=== PATIENT | female | born 1975 | race Hispanic/Latino ===

== ENCOUNTER 2018-03-15 20:49 | Emergency (ER) | payer OTHER ==
--- NOTE | 2018-03-15 21:07 | ER ---
Nurse's Notes [facility] Name: Juliana Chicas Age: 42 yrs Sex: Female : 1975 Arrival Date: 03/15/2018 Time: 20:50 Bed 23 Private MD: Nuno Bear Diagnosis: Nasal congestion Presentation: 03/15 20:57 Presenting complaint: Patient states: nasal congestion X2 days. dry mouth X2 days. ak1 Transition of care: patient was not received from another setting of care. Onset of symptoms is unknown. Risk Assessment: Do you want to hurt yourself or someone else? Patient reports no desire to harm self or others. Initial Sepsis Screen: Does the patient meet any 2 criteria? No. Patient's initial sepsis screen is negative. Does the patient have a suspected source of infection? No. Patient's initial sepsis screen is negative. Care prior to arrival: None. 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 - Social history:: Smoking status: Patient/guardian denies using tobacco. - Ebola Screening: : No symptoms or risks identified at this time. Screenin:00 Abuse screen: Denies threats or abuse. Denies injuries from another. Nutritional aa1 screening: No deficits noted. Tuberculosis screening: No symptoms or risk factors identified. Fall Risk None identified. Assessment: 21:00 General: Appears in no apparent distress. comfortable, Behavior is calm, cooperative, aa1 appropriate for age. Pain: Denies pain. Neuro: Level of Consciousness is awake, alert, obeys commands, Oriented to person, place, time, situation, Gait is steady, Speech is normal. Respiratory: Airway is patent Respiratory effort is even, unlabored, Respiratory pattern is regular, symmetrical. GI: No signs and/or symptoms were reported involving the gastrointestinal system. : No signs and/or symptoms were reported regarding the genitourinary system. EENT: Reports nasal congestion. Derm: Skin is intact, is healthy with good turgor, Skin is pink, warm \T\ dry. Musculoskeletal: Circulation, motion, and sensation intact. Capillary refill < 3 seconds. 21:18 Reassessment: Patient appears in no apparent distress at this time. Discussed d/c \T\ f/u aa1 instructions with pt; denies questions or concerns at this time. Vital Signs: 20:58 BP 122 / 68; Pulse 86; Resp 18; Temp 98.6(TE); Pulse Ox 97% on R/A; Weight 90.72 kg ak1 (R); Height 5 ft. 1 in. (154.94 cm) (R); Pain 4/10; 20:58 Body Mass Index 37.79 (90.72 kg, 154.94 cm) ak1 ED Course: 20:50 Patient arrived in ED. am2 20:50 Nuno Bear DO is Private Physician. am2 20:58 Triage completed. ak1 20:58 Arm band placed on Patient placed in an exam room, on a stretcher, Patient notified of ak1 wait time. 21:00 Patient has correct armband on for positive identification. Bed in low position. Call aa1 light in reach. Pulse ox on. NIBP on. 21:02 Marium Serrato FNP-C is PHCP. snw 21:02 Beto Haro MD is Attending Physician. snw 21:06 Nuno Bear DO is Referral Physician. snw 21:18 Jada Angulo, RN is Primary Nurse. aa1 21:19 No provider procedures requiring assistance completed. Patient did not have IV access aa1 during this emergency room visit. Administered Medications: No medications were administered Outcome: 21:07 Discharge ordered by . snw 21:19 Discharged to home ambulatory, with family. aa1 21:19 Condition: good 21:19 Discharge instructions given to patient, Instructed on discharge instructions, follow up and referral plans. medication usage, Demonstrated understanding of instructions, follow-up care, medications, Prescriptions given X 1. 21:24 Patient left the ED. aa1 Signatures: Jada Angulo RN RN aa1 Marium Serrato FNP-C DIMENSION WAREHOUSE SUPERVISOR-Csnw Hodan Zuleta RN RN ak1 Shahla Quinonez am2
--- NOTE | 2018-03-15 21:07 | EDPHYS ---
Physician Documentation [facility] Name: Juliana Chicas Age: 42 yrs Sex: Female : 1975 Arrival Date: 03/15/2018 Time: 20:50 Bed 23 Private MD: Nuno Bear ED Physician Beto Haro HPI: 03/15 21:16 This 42 yrs old Female presents to ER via Ambulatory with complaints of Nasal snw Congestion. 21:16 The patient or guardian reports nasal congestion. Onset: The symptoms/episode snw began/occurred acutely. Severity of symptoms: At their worst the symptoms were moderate. Associated signs and symptoms: The patient has no apparent associated signs or symptoms. It is unknown whether or not the patient has had similar symptoms in the past. It is unknown whether or not the patient has recently seen a physician. pt states her last seizure was at age 19, unable to find antiepileptics or recall their name. 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 - Social history:: Smoking status: Patient/guardian denies using tobacco. - Ebola Screening: : No symptoms or risks identified at this time. ROS: 21:15 Constitutional: Negative for fever, chills, and weight loss, Eyes: Negative for injury, snw pain, redness, and discharge, Neck: Negative for injury, pain, and swelling, Cardiovascular: Negative for chest pain, palpitations, and edema, Respiratory: Negative for shortness of breath, cough, wheezing, and pleuritic chest pain, Abdomen/GI: Negative for abdominal pain, nausea, vomiting, diarrhea, and constipation, Back: Negative for injury and pain, : Negative for injury, bleeding, discharge, and swelling, MS/Extremity: Negative for injury and deformity, Skin: Negative for injury, rash, and discoloration, Neuro: Negative for headache, weakness, numbness, tingling, and seizure. 21:15 ENT: Positive for sinus congestion. Exam: 21:14 Constitutional: This is a well developed, well nourished patient who is awake, alert, snw and in no acute distress. Mental delay Head/Face: Normocephalic, atraumatic. Eyes: Pupils equal round and reactive to light, extra-ocular motions intact. Lids and lashes normal. Conjunctiva and sclera are non-icteric and not injected. Cornea within normal limits. Periorbital areas with no swelling, redness, or edema. ENT: Nares patent. No nasal discharge, no septal abnormalities noted. Tympanic membranes are normal and external auditory canals are clear. Oropharynx with no redness, swelling, or masses, exudates, or evidence of obstruction, uvula midline. Mucous membranes moist. Extremely poor dentition Neck: Trachea midline, no thyromegaly or masses palpated, and no cervical lymphadenopathy. Supple, full range of motion without nuchal rigidity, or vertebral point tenderness. No Meningismus. Chest/axilla: Normal chest wall appearance and motion. Nontender with no deformity. No lesions are appreciated. Cardiovascular: Regular rate and rhythm with a normal S1 and S2. No gallops, murmurs, or rubs. Normal PMI, no JVD. No pulse deficits. Respiratory: Lungs have equal breath sounds bilaterally, clear to auscultation and percussion. No rales, rhonchi or wheezes noted. No increased work of breathing, no retractions or nasal flaring. Abdomen/GI: Soft, non-tender, with normal bowel sounds. No distension or tympany. No guarding or rebound. No evidence of tenderness throughout. Back: No spinal tenderness. No costovertebral tenderness. Full range of motion. Skin: Warm, dry with normal turgor. Normal color with no rashes, no lesions, and no evidence of cellulitis. MS/ Extremity: Pulses equal, no cyanosis. Neurovascular intact. Full, normal range of motion. Neuro: Awake and alert, GCS 15, oriented to person, place, time, and situation. Cranial nerves II-XII grossly intact. Motor strength 5/5 in all extremities. Sensory grossly intact. Cerebellar exam normal. Normal gait. Vital Signs: 20:58 BP 122 / 68; Pulse 86; Resp 18; Temp 98.6(TE); Pulse Ox 97% on R/A; Weight 90.72 kg ak1 (R); Height 5 ft. 1 in. (154.94 cm) (R); Pain 4/10; 20:58 Body Mass Index 37.79 (90.72 kg, 154.94 cm) ak1 MDM: 21:02 Patient medically screened. snw 21:16 Data reviewed: vital signs, nurses notes. Data interpreted: Pulse oximetry: on room air snw is 97 %. Interpretation: normal. Counseling: I had a detailed discussion with the patient and/or guardian regarding: the historical points, exam findings, and any diagnostic results supporting the discharge/admit diagnosis, the need for outpatient follow up, to return to the emergency department if symptoms worsen or persist or if there are any questions or concerns that arise at home. Special discussion: Based on the history and exam findings, there is no indication for further emergent testing or inpatient evaluation. I discussed with the patient/guardian the need to see the primary care provider for further evaluation of the symptoms. Administered Medications: No medications were administered Disposition: 03/16 07:07 Co-signature as Attending Physician, Beto Haro MD I agree with the assessment and wa plan of care. Disposition: 03/15/18 21:07 Discharged to Home. Impression: Nasal congestion. - Condition is Stable. - Discharge Instructions: Hay Fever. - Prescriptions for Flonase Allergy Relief 50 mcg/actuation Nasal spray,suspension - inhale 2 spray by INTRANASAL route once daily; 1 Container. - Medication Reconciliation Form, Thank You Letter, Antibiotic Education, Prescription Opioid Use form. - Follow up: Nuno Bear DO; When: Tomorrow; Reason: Recheck today's complaints, Continuance of care, Re-evaluation by your physician. Follow up: Emergency Department; When: As needed; Reason: Worsening of condition. Signatures: Jada Angulo, RN RN aa1 Marium Serrato, DESIGN TECHNOLOGY TEACHER-C DESIGN TECHNOLOGY TEACHER-Csnw Hodan Zuleta RN RN ak1 eBto Haro MD MD wa Corrections: (The following items were deleted from the chart) 03/15 21:24 21:07 03/15/2018 21:07 Discharged to Home. Impression: Nasal congestion. Condition is aa1 Stable. Forms are Medication Reconciliation Form, Thank You Letter, Antibiotic Education, Prescription Opioid Use. Follow up: Nuno Bear; When: Tomorrow; Reason: Recheck today's complaints, Continuance of care, Re-evaluation by your physician. Follow up: Emergency Department; When: As needed; Reason: Worsening of condition. snw
== END 2018-03-15 21:24 | disposition home or self-care (01) ==
LOC: ER 20:49
DX: R09.81 Nasal congestion (principal)
CPT/HCPCS: 99283

== ENCOUNTER 2018-10-23 21:15 | Emergency (ER) | payer OTHER ==
[2018-10-23 22:27] LABS: Absolute Monocytes 0.6 K/uL (0.1-1.3); Absolute Neutrophil 5.7 K/uL (1.8-8.0); Basophils % 0.8 % (0-1.3); Eosinophils % 1.1 % (0-4.4); Hematocrit 36.7 % (36.0-45.0); Lymphocytes % 31.9 % (15.3-44.8); MPV 8.7 fL (7.6-11.3); Monocytes % 6.2 % (3.3-12.3); RBC Red Blood Cell Count 4.48 M/uL (3.86-4.86)
[2018-10-23 22:44] LABS: Potassium 3.6 mmol/L (3.5-5.1)
[2018-10-23 22:47] LABS: Urine Blood 3+ (NEG); Urine Glucose NEGATIVE (NEG); Urine Protein TRACE (NEG); Urine Specific Gravity >1.030 (1.005-1.030)
--- NOTE | 2018-10-23 22:52 | ER ---
Nurse's Notes [facility] Name: Juliana Chicas Age: 43 yrs Sex: Female : 1975 Arrival Date: 10/23/2018 Time: 21:20 Bed 15 Private MD: Nathanael Perez Diagnosis: Abnormal uterine and vaginal bleeding, unspecified Presentation: 10/23 21:27 Presenting complaint: Patient states: Vaginal bleeding that she describes as heavy aj1 since yesterday. Patient states that she has to change her pad 2 to 3 times a day. Transition of care: patient was not received from another setting of care. Onset of symptoms was October 22, 2018. Risk Assessment: Do you want to hurt yourself or someone else? Patient reports no desire to harm self or others. Initial Sepsis Screen: Does the patient meet any 2 criteria? No. Patient's initial sepsis screen is negative. Does the patient have a suspected source of infection? No. Patient's initial sepsis screen is negative. Care prior to arrival: None. 21:27 Method Of Arrival: Ambulatory aj1 21:27 Acuity: GEMMA 3 aj1 Triage Assessment: 21:29 General: Appears in no apparent distress. uncomfortable, Behavior is calm, cooperative, aj1 appropriate for age. Pain: Denies pain. Neuro: Level of Consciousness is awake, alert, obeys commands. Cardiovascular: Patient's skin is warm and dry. Respiratory: Airway is patent Respiratory effort is even, unlabored, Respiratory pattern is regular, symmetrical. : Reports vaginal bleeding that is bright red. 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 - Social history:: Smoking status: Patient/guardian denies using tobacco. - Ebola Screening: : Patient denies travel to an Ebola-affected area in the 21 days before illness onset. Screenin:16 Abuse screen: Denies threats or abuse. Denies injuries from another. Nutritional ak1 screening: No deficits noted. Tuberculosis screening: No symptoms or risk factors identified. Fall Risk None identified. Assessment: 22:16 General: Appears in no apparent distress. Behavior is calm, cooperative. Neuro: Level ak1 of Consciousness is awake, alert, obeys commands. Cardiovascular: No deficits noted. Respiratory: No deficits noted. GI: No signs and/or symptoms were reported involving the gastrointestinal system. : Reports vaginal bleeding that is bright red, moderate flow, since yesterday. pt stated she can not remember her LMP. pt stated she called her PCP office today in [place] and was told to come to ER. pt denies any pain. EENT: No signs and/or symptoms were reported regarding the EENT system. Derm: No signs and/or symptoms reported regarding the dermatologic system. Musculoskeletal: No signs and/or symptoms reported regarding the musculoskeletal system. Vital Signs: 21:29 BP 121 / 66; Pulse 68; Resp 18; Temp 98.6; Pulse Ox 100% on R/A; Height 5 ft. 1 in. aj1 (154.94 cm) (R); Pain 0/10; ED Course: 21:20 Patient arrived in ED. am2 21:20 Nuno Bear DO is Private Physician. am2 21:20 Nathanael Perez MD is Private Physician. am2 21:29 Triage completed. aj1 21:29 Arm band placed on Patient placed in an exam room. aj1 21:31 Hodan Zuleta, KRISTEN is Primary Nurse. ak1 21:44 Angel Cantrell NP is PHCP. pm1 21:44 Mehdi Torres MD is Attending Physician. pm1 22:16 Patient has correct armband on for positive identification. Bed in low position. Call ak1 light in reach. Side rails up X 1. Pulse ox on. NIBP on. 22:18 No provider procedures requiring assistance completed. Initial lab(s) drawn, by nv, ak1 sent to lab. Urine collected: clean catch specimen, cloudy. Inserted saline lock: in left hand, using aseptic technique. Blood collected. 22:58 IV discontinued, intact, bleeding controlled, No redness/swelling at site. Pressure ak1 dressing applied. Administered Medications: No medications were administered Outcome: 22:51 Discharge ordered by . pm1 22:58 Discharged to home ambulatory, with family. ak1 22:58 Condition: good 22:58 Discharge instructions given to patient, family, Instructed on discharge instructions, follow up and referral plans. Demonstrated understanding of instructions, follow-up care. 23:02 Patient left the ED. ak1 Signatures: Mariah Mello RN RN aj1 Hodan Zuleta RN RN ak1 Angel Cantrell, MANDY JAVA CORE DEVELOPER pm1 Shahla Quinonez am2
--- NOTE | 2018-10-23 22:52 | EDPHYS ---
Physician Documentation [facility] Name: Juliana Chicas Age: 43 yrs Sex: Female : 1975 Arrival Date: 10/23/2018 Time: 21:20 Bed 15 Private MD: Nathanael Perez ED Physician Mehdi Torres HPI: 10/23 22:48 This 43 yrs old Female presents to ER via Ambulatory with complaints of pm1 Vaginal Bleeding. 22:48 The patient presents with vaginal bleeding that is heavy, reports using 3 pads or pm1 tampons per day. Onset: The symptoms/episode began/occurred yesterday. Modifying factors: The symptoms are alleviated by nothing, the symptoms are aggravated by nothing. Associated signs and symptoms: Pertinent negatives: dysuria, fever, vaginal discharge, abdominal pain. Severity of symptoms: in the emergency department the symptoms have improved. The patient has experienced similar episodes in the past, a few times. The patient has not recently seen a physician. Patient with vaginal bleeding for the past two days that has required 2-3 pads daily. Patient without any pain. Patient reports irregular menstrual cycle history. 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 - Social history:: Smoking status: Patient/guardian denies using tobacco. - Ebola Screening: : Patient denies travel to an Ebola-affected area in the 21 days before illness onset. ROS: 22:48 Positive for vaginal bleeding, menstrual abnormality, Negative for urinary symptoms, pm1 vaginal discharge. 22:48 Constitutional: Negative for fever, chills, and weight loss, Eyes: Negative for injury, pain, redness, and discharge, ENT: Negative for injury, pain, and discharge, Neck: Negative for injury, pain, and swelling, Cardiovascular: Negative for chest pain, palpitations, and edema, Respiratory: Negative for shortness of breath, cough, wheezing, and pleuritic chest pain, Abdomen/GI: Negative for abdominal pain, nausea, vomiting, diarrhea, and constipation, Back: Negative for injury and pain, MS/Extremity: Negative for injury and deformity, Skin: Negative for injury, rash, and discoloration, Neuro: Negative for headache, weakness, numbness, tingling, and seizure. Exam: 22:48 Constitutional: This is a well developed, well nourished patient who is awake, alert, pm1 and in no acute distress. Head/Face: Normocephalic, atraumatic. Eyes: Pupils equal round and reactive to light, extra-ocular motions intact. Lids and lashes normal. Conjunctiva and sclera are non-icteric and not injected. Cornea within normal limits. Periorbital areas with no swelling, redness, or edema. ENT: Nares patent. No nasal discharge, no septal abnormalities noted. Tympanic membranes are normal and external auditory canals are clear. Oropharynx with no redness, swelling, or masses, exudates, or evidence of obstruction, uvula midline. Mucous membranes moist. Neck: Trachea midline, no thyromegaly or masses palpated, and no cervical lymphadenopathy. Supple, full range of motion without nuchal rigidity, or vertebral point tenderness. No Meningismus. Chest/axilla: Normal chest wall appearance and motion. Nontender with no deformity. No lesions are appreciated. Cardiovascular: Regular rate and rhythm with a normal S1 and S2. No gallops, murmurs, or rubs. Normal PMI, no JVD. No pulse deficits. Respiratory: Lungs have equal breath sounds bilaterally, clear to auscultation and percussion. No rales, rhonchi or wheezes noted. No increased work of breathing, no retractions or nasal flaring. Abdomen/GI: Soft, non-tender, with normal bowel sounds. No distension or tympany. No guarding or rebound. No evidence of tenderness throughout. Back: No spinal tenderness. No costovertebral tenderness. Full range of motion. 22:48 Skin: Warm, dry with normal turgor. Normal color with no rashes, no lesions, and no evidence of cellulitis. MS/ Extremity: Pulses equal, no cyanosis. Neurovascular intact. Full, normal range of motion. 22:48 Neuro: Orientation: is normal, Motor: is normal, moves all fours, Sensation: is normal, no obvious gross deficits, Gait: is steady, at a normal pace, without difficulty. Vital Signs: 21:29 BP 121 / 66; Pulse 68; Resp 18; Temp 98.6; Pulse Ox 100% on R/A; Height 5 ft. 1 in. aj1 (154.94 cm) (R); Pain 0/10; MDM: 21:45 Patient medically screened. belen 22:47 Patient medically screened. belen 22:50 Data reviewed: vital signs. Data interpreted: Pulse oximetry: on room air is 100 %. pm1 Interpretation: normal. Counseling: I had a detailed discussion with the patient and/or guardian regarding: the historical points, exam findings, and any diagnostic results supporting the discharge/admit diagnosis, lab results, the need for outpatient follow up, for definitive care, an OB/Gyne specialist, to return to the emergency department if symptoms worsen or persist or if there are any questions or concerns that arise at home. 10/23 21:56 Order name: CBC with Diff; Complete Time: 22:42 pm1 10/23 21:56 Order name: BMP; Complete Time: 22:47 pm1 10/23 21:56 Order name: Urine Dipstick-Ancillary (obtain specimen); Complete Time: 22:16 pm1 10/23 21:56 Order name: Urine Test (obtain specimen); Complete Time: 22:16 pm1 10/23 22:25 Order name: Urine Dipstick--Ancillary (enter results); Complete Time: 22:52 mw2 10/23 22:25 Order name: Urine --Ancillary (enter results); Complete Time: 22:52 mw2 Administered Medications: No medications were administered Disposition: 10/23/18 22:51 Discharged to Home. Impression: Abnormal uterine and vaginal bleeding, unspecified. - Condition is Stable. - Discharge Instructions: Abnormal Uterine Bleeding. - Medication Reconciliation Form, Thank You Letter form. - Follow up: Emergency Department; When: As needed; Reason: Worsening of condition. Follow up: Private Physician; When: 2 - 3 days; Reason: Recheck today's complaints, Continuance of care, Re-evaluation by your physician. - Problem is new. - Symptoms have improved. Addendum: 10/26/2018 09:02 Co-signature as Attending Physician, Mehdi Torres MD I agree with the assessment and c murdock plan of care. Signatures: Dispatcher [employer] Mariah Rebollar RN RN aj1 Mehdi Torres MD MD cha Krenek, Amber RN RN ak1 Angel Cantrell NP ROOFING MACHINE TENDER pm1 Corrections: (The following items were deleted from the chart) 10/23 23:02 22:51 10/23/2018 22:51 Discharged to Home. Impression: Abnormal uterine and vaginal ak1 bleeding, unspecified. Condition is Stable. Forms are Medication Reconciliation Form, Thank You Letter, Antibiotic Education, Prescription Opioid Use. Follow up: Emergency Department; When: As needed; Reason: Worsening of condition. Follow up: Private Physician; When: 2 - 3 days; Reason: Recheck today's complaints, Continuance of care, Re-evaluation by your physician. Problem is new. Symptoms have improved. pm1
== END 2018-10-23 23:02 | disposition home or self-care (01) ==
LOC: ER 21:15
DX: N93.9 Abnormal uterine and vaginal bleeding, unspecified (principal); G40.909 Epilepsy, unspecified, not intractable, without status epilepticus
CPT/HCPCS: 36415; 80048; 81003; 81025; 85025; 99283

== ENCOUNTER 2019-01-18 19:23 | Emergency (ER) | payer OTHER ==
--- OUTSIDE RECORDS SUMMARY | 2019-01-18 19:26 | XMS REPORT ---
:1975 [facility] Address [address] [place] [address] Care Team Providers Name Role Phone Unavailable Unavailable Unavailable Problems This patient has no known problems. Allergies, Adverse Reactions, Alerts This patient has no known allergies or adverse reactions. Medications This patient has no known medications.
--- NOTE | 2019-01-18 20:39 | EDPHYS ---
Physician Documentation [facility] Name: Juliana Chicas Age: 43 yrs Sex: Female : 1975 Arrival Date: 01/18/2019 Time: 19:25 Bed 10 Private MD: ED Physician Wilfrid Gordon HPI: 01/18 20:33 This 43 yrs old Female presents to ER via Ambulatory with complaints of Hand gs red and swollen. 20:33 The patient or guardian reports pain, swelling. The complaints affect the left hand gs diffusely, right hand diffusely. Onset: The symptoms/episode began/occurred 3 month(s) ago. Modifying factors: the symptoms are aggravated by movement. Associated signs and symptoms: Pertinent negatives: cyanosis distally, decreased sensation distally, fever, numbness distally, tingling distally. Severity of symptoms: At their worst the symptoms were moderate, in the emergency department the symptoms are unchanged. The patient has experienced similar episodes in the past, multiple times. 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 - Social history:: Smoking status: Patient/guardian denies using tobacco. - Ebola Screening: : No symptoms or risks identified at this time. ROS: 20:33 All other systems are negative. gs Exam: 20:33 Head/Face: Normocephalic, atraumatic. Eyes: Pupils equal round and reactive to light, gs extra-ocular motions intact. Lids and lashes normal. Conjunctiva and sclera are non-icteric and not injected. Cornea within normal limits. Periorbital areas with no swelling, redness, or edema. ENT: Nares patent. No nasal discharge, no septal abnormalities noted. Tympanic membranes are normal and external auditory canals are clear. Oropharynx with no redness, swelling, or masses, exudates, or evidence of obstruction, uvula midline. Mucous membranes moist. Neck: Trachea midline, no thyromegaly or masses palpated, and no cervical lymphadenopathy. Supple, full range of motion without nuchal rigidity, or vertebral point tenderness. No Meningismus. Chest/axilla: Normal chest wall appearance and motion. Nontender with no deformity. No lesions are appreciated. Cardiovascular: Regular rate and rhythm with a normal S1 and S2. No gallops, murmurs, or rubs. Normal PMI, no JVD. No pulse deficits. Respiratory: Lungs have equal breath sounds bilaterally, clear to auscultation and percussion. No rales, rhonchi or wheezes noted. No increased work of breathing, no retractions or nasal flaring. Abdomen/GI: Soft, non-tender, with normal bowel sounds. No distension or tympany. No guarding or rebound. No evidence of tenderness throughout. Back: No spinal tenderness. No costovertebral tenderness. Full range of motion. Skin: Warm, dry with normal turgor. Normal color with no rashes, no lesions, and no evidence of cellulitis. Neuro: Awake and alert, GCS 15, oriented to person, place, time, and situation. Cranial nerves II-XII grossly intact. Motor strength 5/5 in all extremities. Sensory grossly intact. Cerebellar exam normal. Normal gait. 20:33 Constitutional: The patient appears alert, awake. 20:33 Musculoskeletal/extremity: Extremities: noted in the right hand and left hand: pain, swelling, ROM: limited active range of motion due to pain, limited passive range of motion due to pain, Circulation is intact in all extremities. Vital Signs: 19:45 BP 108 / 88; Pulse 75; Resp 18; Temp 98.6(O); Pulse Ox 100% on R/A; Weight 88 kg; lp1 Height 5 ft. 1 in. (154.94 cm); Pain 10/10; 21:17 BP 125 / 71; Pulse 68; Resp 16 S; Temp 98.4(O); Pulse Ox 100% on R/A; bb 19:45 Body Mass Index 36.66 (88.00 kg, 154.94 cm) lp1 MDM: 20:07 Patient medically screened. gs 20:33 Differential diagnosis: arthritis. Data reviewed: vital signs, nurses notes. gs Counseling: I had a detailed discussion with the patient and/or guardian regarding: the historical points, exam findings, and any diagnostic results supporting the discharge/admit diagnosis, the need for outpatient follow up. Response to treatment: There is no appreciated change of the patient's symptoms at this time. Administered Medications: No medications were administered Disposition: 01/18/19 20:39 Discharged to Home. Impression: Polyarthritis, unspecified. - Condition is Stable. - Discharge Instructions: Arthritis, [id number]. - Prescriptions for Prednisone 20 mg Oral Tablet - take 1 tablet by ORAL route once daily for 5 days; 5 tablet. - Medication Reconciliation Form, Thank You Letter, Antibiotic Education, Prescription Opioid Use form. - Follow up: Private Physician; When: 2 - 3 days; Reason: Re-evaluation by your physician. Signatures: Heather Escobedo RN RN bb Maday Marin RN RN lp1 Wilfrid Gordon MD MD gs Corrections: (The following items were deleted from the chart) 21:17 20:39 01/18/2019 20:39 Discharged to Home. Impression: Polyarthritis, unspecified. bb Condition is Stable. Forms are Medication Reconciliation Form, Thank You Letter, Antibiotic Education, Prescription Opioid Use. Follow up: Private Physician; When: 2 - 3 days; Reason: Re-evaluation by your physician. gs
--- NOTE | 2019-01-18 20:39 | ER ---
Nurse's Notes [facility] Name: Juliana Chicas Age: 43 yrs Sex: Female : 1975 Arrival Date: 01/18/2019 Time: 19:25 Bed 10 Private MD: Diagnosis: Polyarthritis, unspecified Presentation: 01/18 19:43 Presenting complaint: Patient states: "I went to [place] a couple weeks ago for my lp1 hands and they did x-rays and they told me that nothing was wrong with me but they are still red, swollen and hurting, they hurt me when I'm trying to cook"; States symptoms continued now. Transition of care: patient was not received from another setting of care. Onset of symptoms was January 18, 2019. Risk Assessment: Do you want to hurt yourself or someone else? Patient reports no desire to harm self or others. Initial Sepsis Screen: Does the patient meet any 2 criteria? No. Patient's initial sepsis screen is negative. Does the patient have a suspected source of infection? No. Patient's initial sepsis screen is negative. Care prior to arrival: None. 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 - Social history:: Smoking status: Patient/guardian denies using tobacco. - Ebola Screening: : No symptoms or risks identified at this time. Screenin:46 Abuse screen: Denies threats or abuse. Denies injuries from another. Nutritional lp1 screening: No deficits noted. Tuberculosis screening: No symptoms or risk factors identified. Fall Risk None identified. Assessment: 21:14 General: Appears in no apparent distress. Behavior is calm, cooperative. bb 21:15 Pain: Complains of pain in bilateral hands. Neuro: Level of Consciousness is awake, bb alert, obeys commands, Oriented to person, place, time, situation. Cardiovascular: No deficits noted. Respiratory: Respiratory effort is even, unlabored. GI: No signs and/or symptoms were reported involving the gastrointestinal system. Derm: Skin is pink, warm \\T\\ dry. Musculoskeletal: Circulation, motion, and sensation intact. Reports pain in left hand and right hand. 21:18 Reassessment: Patient is alert, oriented x 3, equal unlabored respirations, skin bb warm/dry/pink. pt and parent verbalized understanding of and agrees to plan of care discharge instructions given pt ambulated with steady gait to exit accompanied by family. Vital Signs: 19:45 BP 108 / 88; Pulse 75; Resp 18; Temp 98.6(O); Pulse Ox 100% on R/A; Weight 88 kg; lp1 Height 5 ft. 1 in. (154.94 cm); Pain 10/10; 21:17 BP 125 / 71; Pulse 68; Resp 16 S; Temp 98.4(O); Pulse Ox 100% on R/A; bb 19:45 Body Mass Index 36.66 (88.00 kg, 154.94 cm) lp1 ED Course: 19:25 Patient arrived in ED. es 19:45 Triage completed. lp1 19:45 Arm band placed on left wrist. lp1 19:47 Wilfrid Gordon MD is Attending Physician. gs 21:16 Patient has correct armband on for positive identification. bb 21:16 No provider procedures requiring assistance completed. Patient did not have IV access bb during this emergency room visit. Administered Medications: No medications were administered Outcome: 20:39 Discharge ordered by MD. gs 21:16 Discharged to home ambulatory, with family. bb 21:16 Condition: stable 21:16 Discharge instructions given to patient, family, Instructed on discharge instructions, follow up and referral plans. medication usage, Demonstrated understanding of instructions, follow-up care, medications, Prescriptions given X 1. 21:17 Patient left the ED. bb Signatures: Jessenia Reaves Brenda, RN RN bb Maday Marin RN RN 1 Wilfrid Gordon MD MD
== END 2019-01-18 21:17 | disposition home or self-care (01) ==
LOC: ER 19:23
DX: M13.0 Polyarthritis, unspecified (principal); M79.641 Pain in right hand; G40.909 Epilepsy, unspecified, not intractable, without status epilepticus

== ENCOUNTER 2019-03-10 14:14 | Emergency (ER) | payer OTHER ==
--- OUTSIDE RECORDS SUMMARY | 2019-03-10 14:22 | XMS REPORT ---
:1975 Author Organization [facility] Address [address] [place] [address] [address]. [address] [place] [address] Care Team Providers Name Role Phone Unavailable Unavailable Unavailable Problems This patient has no known problems. Allergies, Adverse Reactions, Alerts This patient has no known allergies or adverse reactions. Medications This patient has no known medications.
--- NOTE | 2019-03-10 15:28 | EDPHYS ---
Physician Documentation [facility] Name: Juliana Chicas Age: 43 yrs Sex: Female : 1975 Arrival Date: 03/10/2019 Time: 14:15 Bed 12 Private MD: ED Physician Fercho Patten HPI: 03/10 15:05 This 43 yrs old Female presents to ER via Ambulatory with complaints of Hand jr8 Pain. 15:05 The patient or guardian reports pain. The complaints affect the left hand diffusely, jr8 right hand diffusely. Context: The problem was sustained at home, resulted from an unknown cause. Onset: The symptoms/episode began/occurred acutely, today. Modifying factors: The symptoms are alleviated by nothing, the symptoms are aggravated by movement. Associated signs and symptoms: The patient has no apparent associated signs or symptoms. Severity of symptoms: At their worst the symptoms were mild, in the emergency department the symptoms are unchanged. The patient has experienced similar episodes in the past, several times. The patient has not recently seen a physician. Intermittent hand pain bilaterally for several months. Stated that while doing dishes today the pain started again but was worse today . 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 - Social history:: Smoking status: Patient/guardian denies using tobacco. - Ebola Screening: : Patient denies exposure to infectious person Patient denies travel to an Ebola-affected area in the 21 days before illness onset. ROS: 15:05 Eyes: Negative for injury, pain, redness, and discharge, ENT: Negative for injury, jr8 pain, and discharge, Neck: Negative for injury, pain, and swelling, Cardiovascular: Negative for chest pain, palpitations, and edema, Respiratory: Negative for shortness of breath, cough, wheezing, and pleuritic chest pain, Abdomen/GI: Negative for abdominal pain, nausea, vomiting, diarrhea, and constipation, Back: Negative for injury and pain, Skin: Negative for injury, rash, and discoloration, Neuro: Negative for headache, weakness, numbness, tingling, and seizure. 15:05 MS/extremity: Positive for pain, of the right hand and left hand. Exam: 15:05 Eyes: Pupils equal round and reactive to light, extra-ocular motions intact. Lids and jr8 lashes normal. Conjunctiva and sclera are non-icteric and not injected. Cornea within normal limits. Periorbital areas with no swelling, redness, or edema. ENT: Nares patent. No nasal discharge, no septal abnormalities noted. Tympanic membranes are normal and external auditory canals are clear. Oropharynx with no redness, swelling, or masses, exudates, or evidence of obstruction, uvula midline. Mucous membranes moist. Neck: Trachea midline, no thyromegaly or masses palpated, and no cervical lymphadenopathy. Supple, full range of motion without nuchal rigidity, or vertebral point tenderness. No Meningismus. Cardiovascular: Regular rate and rhythm with a normal S1 and S2. No gallops, murmurs, or rubs. Normal PMI, no JVD. No pulse deficits. Respiratory: Lungs have equal breath sounds bilaterally, clear to auscultation and percussion. No rales, rhonchi or wheezes noted. No increased work of breathing, no retractions or nasal flaring. Abdomen/GI: Soft, non-tender, with normal bowel sounds. No distension or tympany. No guarding or rebound. No evidence of tenderness throughout. Back: No spinal tenderness. No costovertebral tenderness. Full range of motion. Skin: Warm, dry with normal turgor. Normal color with no rashes, no lesions, and no evidence of cellulitis. MS/ Extremity: Pulses equal, no cyanosis. Neurovascular intact. Full, normal range of motion. Neuro: Awake and alert, GCS 15, oriented to person, place, time, and situation. Cranial nerves II-XII grossly intact. Motor strength 5/5 in all extremities. Sensory grossly intact. Cerebellar exam normal. Normal gait. Vital Signs: 14:21 BP 112 / 74; Pulse 75; Resp 15; Temp 97.9; Pulse Ox 99% on R/A; Weight 88.9 kg; Height ss 5 ft. 1 in. (154.94 cm); Pain 10/10; 14:21 Body Mass Index 37.03 (88.90 kg, 154.94 cm) MDM: 14:56 Patient medically screened. jr8 15:24 Data reviewed: vital signs, nurses notes, and as a result, I will discharge patient. jr8 Data interpreted: Pulse oximetry: on room air is 99 %. Interpretation: normal. Counseling: I had a detailed discussion with the patient and/or guardian regarding: the historical points, exam findings, and any diagnostic results supporting the discharge/admit diagnosis, the need for outpatient follow up, a orthopedic surgeon, to return to the emergency department if symptoms worsen or persist or if there are any questions or concerns that arise at home. ED course: No s/s to suggest carpal tunnel, Raynaud's phenomenon, or RA. Mild OA plausible. Rest of extremity exam along with neck and neurologic exam unremarkable. Recommended f/u with orthopedics and will start on light NSAID based product. Family and patient good with this . Administered Medications: No medications were administered Disposition: 16:16 Co-signature as Attending Physician, Fercho Patten MD I agree with the assessment and kdr plan of care. Disposition: 03/10/19 15:27 Discharged to Home. Impression: Pain in left hand, Pain in right hand. - Condition is Stable. - Discharge Instructions: Arthritis, Musculoskeletal Pain. - Prescriptions for Diclofenac Sodium 75 mg Oral Tablet, Delayed Release (E.C.) - take 1 tablet by ORAL route 2 times per day As needed; 30 tablet. - Medication Reconciliation Form, Thank You Letter, Antibiotic Education, Prescription Opioid Use form. - Follow up: Yoel Bello MD; When: 7 - 10 days; Reason: Recheck today's complaints, Continuance of care, Re-evaluation by your physician. - Problem is new. - Symptoms are unchanged. Signatures: Fercho Patten MD MD [facility] Juana Soliman RN RN Emil Douglas PA PA jr8 Corrections: (The following items were deleted from the chart) 15:56 15:27 03/10/2019 15:27 Discharged to Home. Impression: Pain in left hand; Pain in right ss hand. Condition is Stable. Forms are Medication Reconciliation Form, Thank You Letter, Antibiotic Education, Prescription Opioid Use. Follow up: Yoel Bello; When: 7 - 10 days; Reason: Recheck today's complaints, Continuance of care, Re-evaluation by your physician. Problem is new. Symptoms are unchanged. jr8
--- NOTE | 2019-03-10 15:28 | ER ---
Nurse's Notes [facility] Name: Juliana Chicas Age: 43 yrs Sex: Female : 1975 Arrival Date: 03/10/2019 Time: 14:15 Bed 12 Private MD: Diagnosis: Pain in left hand;Pain in right hand Presentation: 03/10 14:19 Presenting complaint: Patient states: Bilateral hand pain that began after cleaning ss today. Pt reports that she has been seen by her PCP in the past for the same thing and has been told that there is nothing wrong with her hands. Denies injury. Transition of care: patient was not received from another setting of care. Onset of symptoms is unknown. Risk Assessment: Do you want to hurt yourself or someone else? Patient reports no desire to harm self or others. Initial Sepsis Screen: Does the patient meet any 2 criteria? No. Patient's initial sepsis screen is negative. Does the patient have a suspected source of infection? No. Patient's initial sepsis screen is negative. Care prior to arrival: None. 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 - Social history:: Smoking status: Patient/guardian denies using tobacco. - Ebola Screening: : Patient denies exposure to infectious person Patient denies travel to an Ebola-affected area in the 21 days before illness onset. Screenin:56 Abuse screen: Denies threats or abuse. Denies injuries from another. Nutritional ss screening: No deficits noted. Tuberculosis screening: Never had TB. Fall Risk None identified. Assessment: 14:21 General: Appears in no apparent distress. comfortable, Behavior is calm, cooperative, ss Denies fever, feeling ill, fatigue, chills. Pain: Complains of pain in right hand and left hand Pain currently is 10 out of 10 on a pain scale. Quality of pain is described as aching, tender, Is continuous. Neuro: Level of Consciousness is awake, alert, obeys commands, Oriented to person, place, time, situation. Cardiovascular: Capillary refill < 3 seconds is brisk in bilateral fingers. Respiratory: Airway is patent Respiratory effort is even, unlabored, Respiratory pattern is regular, symmetrical. EENT: Oral mucosa is moist. Throat is clear. Derm: Skin is intact, is healthy with good turgor, Skin is dry, Skin is pink, warm \T\ dry. normal. Musculoskeletal: Circulation, motion, and sensation intact. Range of motion: intact in all extremities, Swelling absent. Vital Signs: 14:21 BP 112 / 74; Pulse 75; Resp 15; Temp 97.9; Pulse Ox 99% on R/A; Weight 88.9 kg; Height ss 5 ft. 1 in. (154.94 cm); Pain 10/10; 14:21 Body Mass Index 37.03 (88.90 kg, 154.94 cm) ED Course: 14:15 Patient arrived in ED. as 14:21 Triage completed. ss 14:21 Arm band placed on left wrist. Patient placed in an exam room. ss 14:21 Patient has correct armband on for positive identification. Bed in low position. Call ss light in reach. 14:56 Emil Douglas PA is [facility]. jr8 14:56 Fercho Patten MD is Attending Physician. jr8 15:27 Yoel Bello MD is Referral Physician. jr8 15:55 Juana Soliman RN is Primary Nurse. 15:55 No provider procedures requiring assistance completed. Patient did not have IV access ss during this emergency room visit. Administered Medications: No medications were administered Outcome: 15:27 Discharge ordered by . jr8 15:55 Discharged to home ambulatory, with family. ss 15:55 Condition: good 15:55 Discharge instructions given to patient, family, Instructed on discharge instructions, follow up and referral plans. medication usage, Demonstrated understanding of instructions, follow-up care, medications, Prescriptions given X 1. 15:56 Patient left the ED. Signatures: Kelsy Walker Shelby, KRISTEN RN Emil Douglas PA PA jr
== END 2019-03-10 15:56 | disposition home or self-care (01) ==
LOC: ER 14:14
DX: M79.642 Pain in left hand (principal); M79.641 Pain in right hand
CPT/HCPCS: 99282

== ENCOUNTER 2020-01-19 22:48 | Emergency (ER) | payer OTHER ==
--- OUTSIDE RECORDS SUMMARY | 2020-01-19 22:51 | XMS REPORT ---
:1975 Author Organization [facility] t Address [address] [place] [address] [address]. [address] [place] [address] Care Team Providers Name Role Phone Unavailable Unavailable Unavailable Problems This patient has no known problems. Allergies, Adverse Reactions, Alerts This patient has no known allergies or adverse reactions. Medications This patient has no known medications.
[2020-01-19 23:36] LABS: Absolute Lymphocytes (CBC) 2.4 K/uL (0.7-4.9); Basophils % 1.1 % (0-1.3); Hematocrit 34.3 % (36.0-45.0); Lymphocytes % 27.6 % (15.3-44.8); MPV 8.6 fL (7.6-11.3); RBC Red Blood Cell Count 4.18 M/uL (3.86-4.86)
[2020-01-19 23:43] LABS: ALT/SGPT 14 U/L (12-78); AST/SGOT 9 U/L (15-37); Alkaline Phosphatase 80 U/L (45-117); BUN Blood Urea Nitrogen 17 mg/dL (7-18); Bicarbonate 26 mmol/L (21-32); Glucose Level 115 mg/dL (74-106); Potassium 3.3 mmol/L (3.5-5.1); Protein, Total 6.6 g/dL (6.4-8.2); Sodium Level 137 mmol/L (136-145)
[2020-01-19 23:47] LABS: Bilirubin Total < 0.1 mg/dL (0.2-1.0)
[2020-01-20 01:14] LABS: Specific Gravity 1.015 (1.005-1.030)
--- NOTE | 2020-01-20 01:34 | EDPHYS ---
Physician Documentation [facility] Name: Juliana Chicas Age: 44 yrs Sex: Female : 1975 Arrival Date: 01/19/2020 Time: 22:50 Bed 8 Private MD: ED Physician Rachid Dooley HPI: 01/19 04:20 This 44 yrs old Female presents to ER via EMS with complaints of Abdominal tw4 Cramping, Vaginal Bleeding. 04:20 The patient presents with vaginal bleeding that is moderate, reports using 5 pads or tw4 tampons per day. Onset: The symptoms/episode began/occurred today. Modifying factors: The symptoms are alleviated by nothing, the symptoms are aggravated by nothing. Associated signs and symptoms: Pertinent positives: PELVIC PAIN MILD. Severity of symptoms: At their worst the symptoms were mild, in the emergency department the symptoms are unchanged. The patient has not experienced similar symptoms in the past. TREATMENT SPECIALIST: 01/18 22:55 LMP 01/18/2020 jb4 Historical: - Allergies: 22:55 No Known Allergies; jb4 - Home Meds: 22:55 Trileptal 600 mg Oral tab 1 tab 2 times per day [Active]; jb4 - PMHx: 22:55 Asthma; Seizures; jb4 - PSHx: 22:55 None; jb4 - Immunization history:: Adult Immunizations unknown. - Social history:: Smoking status: Patient denies any tobacco usage or history of. Patient/guardian denies using alcohol, street drugs. ROS: 01/19 04:20 Positive for vaginal bleeding. tw4 Constitutional: Negative for fever, chills, and weight loss, Eyes: Negative for injury, pain, redness, and discharge, Cardiovascular: Negative for chest pain, palpitations, and edema, Respiratory: Negative for shortness of breath, cough, wheezing, and pleuritic chest pain, Abdomen/GI: Negative for abdominal pain, nausea, vomiting, diarrhea, and constipation, Back: Negative for injury and pain, MS/Extremity: Negative for injury and deformity, Skin: Negative for injury, rash, and discoloration, Neuro: Negative for headache, weakness, numbness, tingling, and seizure. Exam: 04:20 Constitutional: This is a well developed, well nourished patient who is awake, alert, tw4 and in no acute distress. Head/Face: Normocephalic, atraumatic. Chest/axilla: Normal chest wall appearance and motion. Nontender with no deformity. No lesions are appreciated. Cardiovascular: Regular rate and rhythm with a normal S1 and S2. No gallops, murmurs, or rubs. Normal PMI, no JVD. No pulse deficits. Respiratory: Lungs have equal breath sounds bilaterally, clear to auscultation and percussion. No rales, rhonchi or wheezes noted. No increased work of breathing, no retractions or nasal flaring. Abdomen/GI: Soft, non-tender, with normal bowel sounds. No distension or tympany. No guarding or rebound. No evidence of tenderness throughout. 04:20 : Pelvic Exam: the exam is deferred. Vital Signs: 01/18 22:52 BP 119 / 73; Pulse 78; Resp 16; Temp 98.5; Pulse Ox 100% on R/A; Weight 81.65 kg (R); 4 Height 5 ft. 1 in. (154.94 cm) (R); Pain 10/10; 23:47 BP 117 / 75; Pulse 71; Resp 18; Pulse Ox 100% ; ea 01/19 01:00 BP 126 / 76; Pulse 64; Resp 16; Pulse Ox 100% on R/A; jb4 02:00 BP 118 / 72; Pulse 58; Resp 16; Pulse Ox 100% on R/A; 4 03:00 BP 113 / 81; Pulse 66; Resp 16; Pulse Ox 100% on R/A; 4 04:00 BP 115 / 72; Pulse 62; Resp 16; Pulse Ox 100% on R/A; jb4 05:00 BP 108 / 66; Pulse 57; Resp 16; Pulse Ox 100% on R/A; jb4 06:00 BP 114 / 74; Pulse 56; Resp 16; Pulse Ox 100% on R/A; [facility] 01/18 22:52 Body Mass Index 34.01 (81.65 kg, 154.94 cm) [facility] MDM: 01/18 23:00 Patient medically screened. tw4 01/19 04:25 Differential diagnosis: dysfunctional uterine bleeding, dysmenorrhea, menometrorrhagia, tw4 menorrhea, hemorrhage. Data reviewed: vital signs, nurses notes. Data interpreted: Pulse oximetry: Interpretation: normal. Counseling: I had a detailed discussion with the patient and/or guardian regarding: the historical points, exam findings, and any diagnostic results supporting the discharge/admit diagnosis. Special discussion: I discussed with the patient/guardian in detail that at this point there is no indication for admission to the hospital. It is understood, however, that if the symptoms persist or worsen the patient needs to return immediately for re-evaluation. 01/18 23:03 Order name: CBC with Diff; Complete Time: 00:09 01/19 00:09 Interpretation: Normal except: HGB 11.1; MCH 26.7; HCT 34.3. 01/18 23:03 Order name: CMP; Complete Time: 00:09 01/19 00:09 Interpretation: Normal except: K 3.3; GLUC 115; GFR 72. 01/18 22:54 Order name: Urine Dipstick-Ancillary (obtain specimen); Complete Time: 23:36 01/18 22:54 Order name: Urine Test (obtain specimen); Complete Time: 23:36 01/19 01:07 Order name: Test, Urine; Complete Time: 01:33 EDMS Administered Medications: No medications were administered Disposition: 01/20/20 01:33 Discharged to Home. Impression: Dysmenorrhea, unspecified. - Condition is Stable. - Discharge Instructions: Dysmenorrhea, Dysmenorrhea, [id number]. - Prescriptions for Ibuprofen 800 mg Oral Tablet - take 1 tablet by ORAL route every 8 hours As needed take with food; 30 tablet. - Medication Reconciliation Form, Thank You Letter, Antibiotic Education, Prescription Opioid Use form. - Follow up: Private Physician; When: Upon discharge from the Emergency Department; Reason: Recheck today's complaints, Continuance of care, Re-evaluation by your physician. - Problem is new. - Symptoms have improved. Signatures: Dispatcher [employer] Ti Prasad RN RN em Bryson, James, RN RN jb4 Rachid Dooley MD MD tw4 Corrections: (The following items were deleted from the chart) 08:09 01:33 01/20/2020 01:33 Discharged to Home. Impression: Dysmenorrhea, unspecified. em Condition is Stable. Forms are Medication Reconciliation Form, Thank You Letter, Antibiotic Education, Prescription Opioid Use. Follow up: Private Physician; When: Upon discharge from the Emergency Department; Reason: Recheck today's complaints, Continuance of care, Re-evaluation by your physician. Problem is new. Symptoms have improved. tw4
--- NOTE | 2020-01-20 01:34 | ER ---
Nurse's Notes [facility] Name: Juliana Chicas Age: 44 yrs Sex: Female : 1975 Arrival Date: 01/19/2020 Time: 22:50 Bed 8 Private MD: Diagnosis: Dysmenorrhea, unspecified Presentation: 01/18 22:52 Chief complaint: EMS states: PT reports having lower abdominal pain and vaginal jb4 bleeding that happens once a month every month. Coronavirus screen: Proceed with normal triage. Ebola Screen: No symptoms or risks identified at this time. Initial Sepsis Screen: Does the patient meet any 2 criteria? No. Patient's initial sepsis screen is negative. Does the patient have a suspected source of infection? No. Patient's initial sepsis screen is negative. Risk Assessment: Do you want to hurt yourself or someone else? Patient reports no desire to harm self or others. Onset of symptoms was January 19, 2020. Care prior to arrival: IV initiated. 20 GA, in the left hand, Glucose check: 127. Transition of care: patient was not received from another setting of care. 22:52 Method Of Arrival: EMS: [facility] jb4 22:52 Acuity: GEMMA 3 jb4 OUTDOOR GUIDE: 22:55 LMP 01/18/2020 jb4 Historical: - Allergies: 22:55 No Known Allergies; jb4 - Home Meds: 22:55 Trileptal 600 mg Oral tab 1 tab 2 times per day [Active]; jb4 - PMHx: 22:55 Asthma; Seizures; jb4 - PSHx: 22:55 None; jb4 - Immunization history:: Adult Immunizations unknown. - Social history:: Smoking status: Patient denies any tobacco usage or history of. Patient/guardian denies using alcohol, street drugs. Screenin:00 Abuse screen: Denies threats or abuse. Nutritional screening: No deficits noted. jb4 Tuberculosis screening: No symptoms or risk factors identified. Fall Risk None identified. Assessment: 23:00 General: Appears in no apparent distress. uncomfortable, Behavior is calm, cooperative, jb4 appropriate for age. Pain: Complains of pain in right lower quadrant and left lower quadrant Pain does not radiate. Pain currently is 10 out of 10 on a pain scale. Quality of pain is described as crampy, Pain began 1 day ago. Is continuous. Neuro: Level of Consciousness is awake, alert, obeys commands, Oriented to person, place, time, situation. Cardiovascular: Patient's skin is warm and dry. Respiratory: Airway is patent Respiratory effort is even, unlabored, Respiratory pattern is regular, symmetrical. GI: Abdomen is non-distended, obese, Bowel sounds present X 4 quads. Abd is soft and non tender X 4 quads. : No signs and/or symptoms were reported regarding the genitourinary system. EENT: No signs and/or symptoms were reported regarding the EENT system. Derm: Skin is intact, Skin is pink, warm \\T\\ dry. Musculoskeletal: Circulation, motion, and sensation intact. Range of motion: intact in all extremities. 01/19 00:00 Reassessment: Patient appears in no apparent distress at this time. Patient and/or jb4 family updated on plan of care and expected duration. Pain level reassessed. Patient is alert, oriented x 3, equal unlabored respirations, skin warm/dry/pink. 01:00 Reassessment: Patient appears in no apparent distress at this time. Patient and/or jb4 family updated on plan of care and expected duration. Pain level reassessed. Patient is alert, oriented x 3, equal unlabored respirations, skin warm/dry/pink. 02:16 Reassessment: Patient states she does not have a ride home; given phone insurance risk analyst to lp1 contact. 03:00 Reassessment: Patient appears in no apparent distress at this time. Patient and/or jb4 family updated on plan of care and expected duration. Pain level reassessed. Patient is alert, oriented x 3, equal unlabored respirations, skin warm/dry/pink. PT reports not being able to get a ride till morning. states " I can't call my mom. I don't think she will come. I know she wont come get me because she has a hard time seeing at night.". 04:00 Reassessment: Patient appears in no apparent distress at this time. Patient and/or jb4 family updated on plan of care and expected duration. Pain level reassessed. Patient is alert, oriented x 3, equal unlabored respirations, skin warm/dry/pink. 05:00 Reassessment: Patient appears in no apparent distress at this time. Patient and/or jb4 family updated on plan of care and expected duration. Pain level reassessed. Patient is alert, oriented x 3, equal unlabored respirations, skin warm/dry/pink. 06:42 Reassessment: Patient appears in no apparent distress at this time. Patient and/or jb4 family updated on plan of care and expected duration. Pain level reassessed. Patient is alert, oriented x 3, equal unlabored respirations, skin warm/dry/pink. PT is refusing to give the number to her mother. States " I do not want to go home, I want to walk home to [place]. I don't want to see my mom right now. I want to walk home so I will not be home on time.". Denies having any where else to go. 07:25 Reassessment: pt unable to get a ride, [facility] has no funds to make a phone call, [facility] architect notified and pt will take a taxi home. Vital Signs: 01/18 22:52 BP 119 / 73; Pulse 78; Resp 16; Temp 98.5; Pulse Ox 100% on R/A; Weight 81.65 kg (R); jb4 Height 5 ft. 1 in. (154.94 cm) (R); Pain 10/10; 23:47 BP 117 / 75; Pulse 71; Resp 18; Pulse Ox 100% ; ea 01/19 01:00 BP 126 / 76; Pulse 64; Resp 16; Pulse Ox 100% on R/A; jb4 02:00 BP 118 / 72; Pulse 58; Resp 16; Pulse Ox 100% on R/A; jb4 03:00 BP 113 / 81; Pulse 66; Resp 16; Pulse Ox 100% on R/A; jb4 04:00 BP 115 / 72; Pulse 62; Resp 16; Pulse Ox 100% on R/A; jb4 05:00 BP 108 / 66; Pulse 57; Resp 16; Pulse Ox 100% on R/A; jb4 06:00 BP 114 / 74; Pulse 56; Resp 16; Pulse Ox 100% on R/A; jb4 01/18 22:52 Body Mass Index 34.01 (81.65 kg, 154.94 cm) [facility] ED Course: 01/18 22:50 Patient arrived in ED. lp1 22:52 Jeff Genao, RN is Primary Nurse. jb4 22:53 Rachid Dooley MD is Attending Physician. tw4 22:54 Triage completed. jb4 22:55 Arm band placed on right wrist. EKG completed in triage. Results shown to MD. jb4 23:00 Patient has correct armband on for positive identification. Bed in low position. Call jb4 light in reach. Side rails up X 1. Pulse ox on. NIBP on. 01/19 06:46 No provider procedures requiring assistance completed. IV discontinued, intact, jb4 bleeding controlled, No redness/swelling at site. Pressure dressing applied. Administered Medications: No medications were administered Outcome: 01:33 Discharge ordered by . tw4 08:09 Discharged to home ambulatory. em 08:09 Condition: good 08:09 Discharge instructions given to patient, Instructed on discharge instructions, follow up and referral plans. medication usage, Demonstrated understanding of instructions, follow-up care, medications, Prescriptions given X 1. 08:09 Patient left the ED. em Signatures: Ti Gonzales, RN RN em Maday Marin, RN RN lp1 Jeff Genao, RN RN jb4 Erin Yañez, RN Rachid Young ea, MD MD tw4
[2020-01-20 08:33] VITALS: TEMP 98.5; O2SAT 100
[2020-01-20 08:47] VITALS: BP 114/74
== END 2020-01-20 08:09 | disposition home or self-care (01) ==
LOC: ER 22:48
DX: N94.6 Dysmenorrhea, unspecified (principal); G40.909 Epilepsy, unspecified, not intractable, without status epilepticus
CPT/HCPCS: 36415; 80053; 81025; 85025; 99283

== ENCOUNTER 2020-05-28 15:01 | Emergency (ER) | payer SELFPAY ==
--- OUTSIDE RECORDS SUMMARY | 2020-05-28 15:03 | XMS REPORT | Summary of Care ---
:1975 Author Organization [facility] Address [address] [place] [address] Care Team Providers Name Role Phone Katty Haile MD Primary Care Provider Reason for Visit Reason Comments Results Encounter Details Date Type Department Care Team Description 04/15/2020 Telephone ACCESS CENTER Katherine Pickett FNP Results [address] [address] [facility] [phone] [place] [address] 15-1500 Allergies No Known Allergiesdocumented as of this encounter (statuses as of 04/15/2020) Medications Medication Sig Dispensed Refills Start Date End Date Status OXcarbazepine Take 600 mg by 0 A ctive (TRILEPTAL) 600 mg mouth 2 (two) tablet times daily. documented as of this encounter (statuses as of 04/15/2020) Active Problems Problem Noted Date Bilateral hand pain 01/17/2019 Prediabetes 12/29/2018 Iron deficiency 07/16/2017 Beta thalassemia trait 07/16/2017 Dental decay 07/02/2017 Anemia 02/20/2017 History of hypertension 03/20/2016 Mentally challenged 02/28/2016 documented as of this encounter (statuses as of 04/15/2020) Resolved Problems Problem Noted Date Resolved Date Normal delivery 03/25/2016 07/02/2017 AMA (advanced maternal age) primigravida 35+ 03/25/2016 07/02/2017 38 weeks gestation of 03/20/2016 07/02/20 17 Maternal anemia in , antepartum, third trimester 07/02/2017 Supervision of high-risk of elderly primigravida, 02/28/2016 07/02/2017 third trimester High-risk , third trimester [O09.93] 02/28/2016 07/02/2017 Insufficient care, third trimester [O09.33] 016 07/02/2017 documented as of this encounter (statuses as of 04/15/2020) Immunizations Name Administration Dates Next Due Influenza Virus Vaccine Quad IM Multi-dose 6+ MO 07/02/2017 documented as of this encounter Social History Tobacco Use Types Packs/Day Years Used Date Never Smoker Smokeless Tobacco: Never Used Alcohol Use Drinks/Week oz/Week Comments No 0 Standard drinks or equivalent 0.0 Sex Assigned at Date Recorded Not on file Job Start Date Occupation Industry Not on file Not on file Not on file Travel History Travel Start Travel End No recent travel history available. documented as of this encounter Last Filed Vital Signs Not on filedocumented in this encounter Plan of Treatment Health Maintenance Due Date Last Done Comments PNEUMOCOCCAL 0-64 YEARS COMBINED SERIES (1 of 3 - 1983 PCV13) DTaP,Tdap,and Td Vaccines (1 - Tdap) 1988 Depression Screening 1989 Breast Cancer Screening (MAMMOGRAM) 2017 PAP SMEAR 02/27/2019 02/28/2016 INFLUENZA VACCINE (#1) 2020 07/02/2017 documented as of this encounter Results Not on filedocumented in this encounter Additional Health Concerns Infection Onset Date Last Indicated Resolved Time COVID-19 Rule Out 04/14/2020 04/14/2020 04/15/2020 2: 40 AM CDT COVID-19 Confirmed 04/14/2020 04/14/2020 documented as of this encounter Insurance Payer Benefit Plan / Subscriber ID Effective Phone Address T ype Group Dates [facility] [id number] 2018-Prese Medic are Adv HEALTHCARE - HEALTHCARE DUAL nt P PO MANAGED COMPLETE MEDICARE WELLCARE MAURA WELLSIOBHAN LORENZO [id number] 2020-Pres Medicare Adv PLUS PLUS ent HMO CLASSIC/VALUE documented as of this encounter
--- OUTSIDE RECORDS SUMMARY | 2020-05-28 15:03 | XMS REPORT | Summary of Care ---
:1975 Author Organization [facility] Address [address] [place] [id number] Care Team Providers Name Role Phone Katty Haile MD Primary Care Provider Reason for Visit Reason Comments Exposure LAB Encounter Details Date Type Department Care Team Description 04/14/2020 Laboratory Only [facility] Family Marilyn Pickett FNP [address] [place] [address] [address] Suspected Covid-19 Medicine - [facility], Adc Fam Pob I Virus Infection [address] [place] [address] (Primary D x) [place] [address] Allergies No Known Allergiesdocumented as of this encounter (statuses as of 04/14/2020) Medications Medication Sig Dispensed Refills Start Date End Date Status OXcarbazepine Take 600 mg by 0 A ctive (TRILEPTAL) 600 mg mouth 2 (two) tablet times daily. documented as of this encounter (statuses as of 04/14/2020) Active Problems Problem Noted Date Bilateral hand pain 01/17/2019 Prediabetes 12/29/2018 Iron deficiency 07/16/2017 Beta thalassemia trait 07/16/2017 Dental decay 07/02/2017 Anemia 02/20/2017 History of hypertension 03/20/2016 Mentally challenged 02/28/2016 documented as of this encounter (statuses as of 04/14/2020) Resolved Problems Problem Noted Date Resolved Date [...] as of this encounter (statuses as of 04/14/2020) Immunizations Name Administration Dates Next Due Influenza [...] filedocumented in this encounter Plan of Treatment Name Type Priority Associated Diagnoses Order S chedule COVID-19 (PCR MOLECULAR LAB Routine Suspected Covid-1 9 Virus Expected: 04/14/2020, TESTING) Infection Expires: 2020 Health Maintenance Due Date Last Done Comments PNEUMOCOCCAL 0-64 YEARS COMBINED SERIES (1 of 3 - 1983 PCV13) DTaP,Tdap,and Td Vaccines (1 - Tdap) 1988 Depression Screening 1989 Breast Cancer Screening (MAMMOGRAM) 2017 PAP SMEAR 02/27/2019 02/28/2016 INFLUENZA VACCINE (#1) 2020 07/02/2017 documented as of this encounter Results Not on filedocumented in this encounter Visit Diagnoses Diagnosis Suspected Covid-19 Virus Infection - Sully matthew documented in this encounter Additional Health Concerns Infection Onset Date Last Indicated Resolved Time COVID-19 Rule Out 04/14/2020 04/14/2020 documented as of this encounter
--- OUTSIDE RECORDS SUMMARY | 2020-05-28 15:03 | XMS REPORT | Continuity of Care Document ---
:1975 Author Organization [facility] t Address [address] [place] [address] [address] [place] [address] Care Team Providers Name Role Phone Piyush SCALLOP RAKER Attending Clinician Lab, Fam Pob I Attending Clinician Unavailable Doctor Unassigned, Name Attending Clinician Unavailable Problems This patient has no known problems. Allergies, Adverse Reactions, Alerts This patient has no known allergies or adverse reactions. Medications This patient has no known medications. Procedures This patient has no known procedures. Encounters Start End Encounter Admission Attending Care Care Encounter Source Date/Time Date/Time Type Type Clinicians Facility Department ID 2020-04-15 2020-04-15 Telephone JOE Pickett [id number] 00:00:00 00:00:[id number] [facility] [id number] 2020-04-14 2020-04-14 Laboratory Lab, [facility] [id number] 09:52:50 10:12:50 Only Fam Pob I Health [id number] [place] [id number] Professio [phone] nal [address] 2020-04-14 2020-04-14 Letter Doctor JOE [id number] 00:00:00 00:00:00 (Out) UnassJE escalante [id number] [facility] [id number] Results This patient has no known results.
--- OUTSIDE RECORDS SUMMARY | 2020-05-28 15:03 | XMS REPORT | Summary of Care ---
:1975 Author Organization [facility] Address [address] [place] [address] Care Team Providers Name Role Phone Katty Haile MD Primary Care Provider Encounter Details Date Type Department Care Team Description 04/14/2020 Letter (Out) [facility] appbackr Message s Doctor Unassigned, No 301 [facility] [place] [address] [address] [facility] [phone] [place] [address] Allergies No Known Allergiesdocumented as of this [...] filedocumented in this encounter Plan of Treatment Date Type Specialty Care Team Description 04/14/2020 Laboratory Only Family Medicine Katherine Pickett, HYDROELECTRIC MECHANIC [address] [address] Suspected Covid-19 Lab, Adc Fam Pob I Virus Infection (Primary Dx) Health Maintenance Due Date Last Done Comments PNEUMOCOCCAL 0-64 YEARS COMBINED SERIES (1 of 3 - 1983 PCV13) DTaP,Tdap,and Td Vaccines (1 - Tdap) 1988 Depression Screening 1989 Breast Cancer Screening (MAMMOGRAM) 2017 PAP SMEAR 02/27/2019 02/28/2016 INFLUENZA VACCINE (#1) 2020 07/02/2017 documented as of this encounter Results Not on filedocumented in this encounter Insurance Payer Benefit Plan / Subscriber ID Effective Phone Address T ype Group Dates [employer] [id number] 2018-Prese Medic are Adv HEALTHCARE - HEALTHCARE DUAL nt P PO MANAGED COMPLETE MEDICARE WELL[employer]ARE MAURA LORENZO [id number] 2020-Pres Medicare Adv PLUS PLUS ent HMO CLASSIC/VALUE documented as of this encounter
[2020-05-28 15:52] LABS: Absolute Lymphocytes (CBC) 2.1 K/uL (0.7-4.9); Hematocrit 37.7 % (36.0-45.0); Lymphocytes % 22.1 % (15.3-44.8); MPV 8.8 fL (7.6-11.3); RBC Red Blood Cell Count 4.64 M/uL (3.86-4.86)
[2020-05-28 15:53] LABS: Protime INR 1.01
[2020-05-28 16:08] LABS: ALT/SGPT 17 U/L (12-78); AST/SGOT 10 U/L (15-37); Albumin 3.6 g/dL (3.4-5.0); Alkaline Phosphatase 99 U/L (45-117); BUN Blood Urea Nitrogen 13 mg/dL (7-18); Bicarbonate 26 mmol/L (21-32); Bilirubin Direct < 0.1 mg/dL (0-0.2); Bilirubin Total 0.2 mg/dL (0.2-1.0); Glucose Level 97 mg/dL (74-106); Magnesium 2.5 mg/dL (1.8-2.4); NT PRO-BNP 140 pg/mL (<125); Potassium 3.9 mmol/L (3.5-5.1); Protein, Total 7.7 g/dL (6.4-8.2); Sodium Level 140 mmol/L (136-145); Troponin (Emerg Dept Use Only) < 0.02 ng/mL (0.0-0.045)
--- NOTE | 2020-05-28 16:33 | RAD REPORT ---
EXAM DESCRIPTION: Marky Single View05/28/2020 4:17 pm CLINICAL HISTORY: Chest pain COMPARISON: 2015 FINDINGS: The lungs appear clear of acute infiltrate. The heart is normal size IMPRESSION: No acute abnormalities displayed
[2020-05-28 16:38] LABS: Urine Blood NEGATIVE (NEG); Urine Glucose NEGATIVE (NEG); Urine Protein NEGATIVE (NEG)
--- NOTE | 2020-05-28 20:28 | ER ---
Nurse's Notes [facility] Name: Juliana Chicas Age: 44 yrs Sex: Female : 1975 Arrival Date: 05/28/2020 Time: 15:09 Bed 2 Private MD: Diagnosis: Chest pain, unspecified Presentation: 05/28 15:09 Chief complaint: EMS states: Toned out for CP, started today when guardian left, pt is jl7 developmentally delayed with approximate developmental age of about 14. No interventions in route, pt appeared comfortable in route. Coronavirus screen: Client denies travel out of the [place] in the last 14 days. At this time, the client does not indicate any symptoms associated with coronavirus-19. Ebola Screen: No symptoms or risks identified at this time. Initial Sepsis Screen: Does the patient meet any 2 criteria? No. Patient's initial sepsis screen is negative. Does the patient have a suspected source of infection? No. Patient's initial sepsis screen is negative. Risk Assessment: Do you want to hurt yourself or someone else? Patient reports no desire to harm self or others. Onset of symptoms was May 28, 2020. Care prior to arrival: None. Transition of care: patient was not received from another setting of care. 15:09 Method Of Arrival: EMS: [facility] 7 15:09 Acuity: GEMMA 3 jl7 Triage Assessment: 15:12 General: Appears in no apparent distress. uncomfortable, Behavior is calm, cooperative. jl7 Pain: Complains of pain in mid-sternal area Pain does not radiate. Pain currently is 10 out of 10 on a pain scale. Quality of pain is described as "Oh, I don't know." Pain began suddenly, Is continuous. Neuro: Level of Consciousness is awake, alert, obeys commands, Oriented to person, place, time, situation. Cardiovascular: Heart tones present Patient's skin is warm and dry. Rhythm is sinus rhythm. Respiratory: Airway is patent Respiratory effort is even, unlabored, Respiratory pattern is regular, symmetrical. Derm: Skin is pink, warm \\T\\ dry. TRIBAL DELEGATE: 15:12 LMP N/A - Irregular menses jl7 Historical: - Allergies: 15:12 No Known Allergies; jl7 - Home Meds: 15:12 Trileptal 600 mg Oral tab 1 tab 2 times per day [Active]; jl7 - PMHx: 15:12 Asthma; Seizures; jl7 - PSHx: 15:12 None; jl7 - Immunization history:: Adult Immunizations unknown. - Social history:: Smoking status: Patient denies any tobacco usage or history of. Screenin:14 Abuse screen: Denies threats or abuse. Denies injuries from another. Nutritional jl7 screening: No deficits noted. Tuberculosis screening: No symptoms or risk factors identified. Fall Risk IV access (20 points). Total Berrios Fall Scale indicates No Risk (0-24 pts). Assessment: 15:14 General: See triage assessment. Pain: Complains of pain in mid-sternal area Pain does jl7 not radiate. Pain currently is 10 out of 10 on a pain scale. Quality of pain is described as "Oh, I don't know." Pain began suddenly, Is continuous. 16:16 Reassessment: Patient appears in no apparent distress at this time. No changes from ca1 previously documented assessment. Patient and/or family updated on plan of care and expected duration. Pain level reassessed. 17:15 Reassessment: Patient appears in no apparent distress at this time. No changes from ca1 previously documented assessment. Patient and/or family updated on plan of care and expected duration. Pain level reassessed. 17:39 Reassessment: for repeat Trop at 2000 per provider. ca1 18:43 Reassessment: Patient appears in no apparent distress at this time. No changes from jl7 previously documented assessment. Patient and/or family updated on plan of care and expected duration. Pain level reassessed. Patient is alert, oriented x 3, equal unlabored respirations, skin warm/dry/pink. 19:54 Reassessment: Patient appears in no apparent distress at this time. No changes from ca1 previously documented assessment. Patient and/or family updated on plan of care and expected duration. Pain level reassessed. Patient is alert, oriented x 3, equal unlabored respirations, skin warm/dry/pink. 20:35 Reassessment: Patient appears in no apparent distress at this time. Patient is alert, ca1 oriented x 3, equal unlabored respirations, skin warm/dry/pink. Spoke with pt's mother on the phone, provided discharge instructions and to come pick pt up from the ER. Vital Signs: 15:09 BP 117 / 61; Pulse 70; Resp 12 S; Temp 98(O); Pulse Ox 98% on R/A; Weight 74.39 kg (R); jl7 Pain 10/10; 16:16 BP 116 / 83; Pulse 58; Resp 15 S; Pulse Ox 100% on R/A; ca1 17:15 BP 110 / 85; Pulse 61; Resp 16 S; Pulse Ox 100% on R/A; ca1 18:43 BP 117 / 91; Pulse 52; Resp 16; Pulse Ox 99% ; jl7 19:55 BP 113 / 82; Pulse 58; Resp 16 S; Pulse Ox 99% on R/A; ca1 20:35 BP 111 / 81; Pulse 61; Resp 15 S; Pulse Ox 99% on R/A; ca1 ED Course: 15:09 Patient arrived in ED. jl7 15:12 Triage completed. jl7 15:12 Arm band placed on right wrist. jl7 15:14 EKG completed in triage. Results shown to MD. jl7 15:14 Patient has correct armband on for positive identification. Placed in gown. Bed in low jl7 position. Call light in reach. Side rails up X2. telemetry monitor on. Pulse ox on. NIBP on. 15:14 Patient maintains SpO2 saturation greater than 95% on room air. jl7 15:15 Angel Cantrell NP is PHCP. pm1 15:15 Dale Mcleod MD is Attending Physician. pm1 15:23 Kelsey Lehman RN is Primary Nurse. ca1 15:32 Kelsey Lehman RN is Primary Nurse. ca1 15:40 Missed attempt(s): 22 gauge in right forearm. antecubital area. mh5 15:42 Missed attempt(s): 22 gauge in left antecubital area. Bleeding controlled, band aid ca1 applied, catheter tip intact. 15:45 Initial lab(s) drawn, by me, sent to lab. Inserted saline lock: 22 gauge in left wrist, ca1 using aseptic technique. Blood collected. 16:17 XRAY Chest (1 view) In Process Unspecified. EDMS 19:52 Troponin (emerg Dept Use Only) Sent. ds4 19:57 No provider procedures requiring assistance completed. ca1 20:36 IV discontinued, intact, bleeding controlled, No redness/swelling at site. Pressure ca1 dressing applied. Administered Medications: No medications were administered Outcome: 20:27 Discharge ordered by MD. pm1 20:36 Discharged to home ambulatory. ca1 20:36 Condition: stable 20:36 Discharge instructions given to patient, Instructed on discharge instructions, follow up and referral plans. Demonstrated understanding of instructions, follow-up care. 20:36 Patient left the ED. ca1 Signatures: Dispatcher [employer] EDMS Ross Mensah ds4 Angel Cantrell NP MANAGER SPECIALTY pm1 Gabriela Walker 5 Ana Perez RN RN jl7 Kelsey Lehman RN RN ca1 Corrections: (The following items were deleted from the chart) 20:36 20:35 BP 111 / 81; Pulse 51bpm; Resp 15bpm; Spontaneous; Pulse Ox 99% RA; ca1 ca1
--- NOTE | 2020-05-28 20:28 | EDPHYS ---
Physician Documentation [facility] Name: Juliana Chicas Age: 44 yrs Sex: Female : 1975 Arrival Date: 05/28/2020 Time: 15:09 Bed 2 Private MD: ED Physician Dale Mcleod HPI: 05/28 15:26 This 44 yrs old Female presents to ER via EMS with complaints of Chest Pain > pm1 32 y/o. 15:26 The patient or guardian reports chest pain that is located primarily in the mid-sternal pm1 area. Onset: today, When her mother left her at home to go to [employer] with her siblings. The pain does not radiate. Associated signs and symptoms: Pertinent negatives: abdominal pain, cough, headache, nausea, palpitations, shortness of breath, vomiting. Duration: The patient or guardian reports a single episode, that is still ongoing. The patient has not experienced similar symptoms in the past. 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 - Social history:: Smoking status: Patient denies any tobacco usage or history of. ROS: 15:26 Constitutional: Negative for fever, chills, and weight loss, Eyes: Negative for injury, pm1 pain, redness, and discharge, ENT: Negative for injury, pain, and discharge, Neck: Negative for injury, pain, and swelling. 15:26 Respiratory: Negative for shortness of breath, cough, wheezing, and pleuritic chest pain, Abdomen/GI: Negative for abdominal pain, nausea, vomiting, diarrhea, and constipation, Back: Negative for injury and pain, MS/Extremity: Negative for injury and deformity, Skin: Negative for injury, rash, and discoloration, Neuro: Negative for headache, weakness, numbness, tingling, and seizure. 15:26 Cardiovascular: Positive for chest pain, Negative for edema, palpitations. Exam: 15:26 Constitutional: This is a well developed, well nourished patient who is awake, alert, pm1 and in no acute distress. Head/Face: Normocephalic, atraumatic. Neck: Trachea midline, no thyromegaly or masses palpated, and no cervical lymphadenopathy. Supple, full range of motion without nuchal rigidity, or vertebral point tenderness. No Meningismus. 15:26 Back: No spinal tenderness. No costovertebral tenderness. Full range of motion. Skin: Warm, dry with normal turgor. Normal color with no rashes, no lesions, and no evidence of cellulitis. MS/ Extremity: Pulses equal, no cyanosis. Neurovascular intact. Full, normal range of motion. 15:26 Chest/axilla: Inspection: normal, Palpation: tenderness, that is mild, of the mid-sternal area, that totally reproduces the patient's complaints. 15:26 Cardiovascular: Exam negative for acute changes, Rate: normal, Rhythm: regular, Pulses: no pulse deficits are appreciated, Heart sounds: normal, Edema: is not appreciated. 15:26 Respiratory: Exam negative for acute changes, respiratory distress, shortness of breath. 15:26 Abdomen/GI: Exam negative for acute changes, Inspection: abdomen appears normal, Palpation: abdomen is soft and non-tender, in all quadrants. 15:26 Neuro: Exam negative for acute changes, Orientation: is normal, Mentation: is normal, Motor: moves all fours. Vital Signs: 15:09 BP 117 / 61; Pulse 70; Resp 12 S; Temp 98(O); Pulse Ox 98% on R/A; Weight 74.39 kg (R); jl7 Pain 10/10; 16:16 BP 116 / 83; Pulse 58; Resp 15 S; Pulse Ox 100% on R/A; ca1 17:15 BP 110 / 85; Pulse 61; Resp 16 S; Pulse Ox 100% on R/A; ca1 18:43 BP 117 / 91; Pulse 52; Resp 16; Pulse Ox 99% ; jl7 19:55 BP 113 / 82; Pulse 58; Resp 16 S; Pulse Ox 99% on R/A; ca1 20:35 BP 111 / 81; Pulse 61; Resp 15 S; Pulse Ox 99% on R/A; ca1 MDM: 15:22 Patient medically screened. pm1 20:27 Data reviewed: vital signs. Data interpreted: Pulse oximetry: on room air is 99 %. pm1 Interpretation: normal. Counseling: I had a detailed discussion with the patient and/or guardian regarding: the historical points, exam findings, and any diagnostic results supporting the discharge/admit diagnosis, lab results, radiology results, the need for outpatient follow up, to return to the emergency department if symptoms worsen or persist or if there are any questions or concerns that arise at home. 05/28 15:24 Order name: Basic Metabolic Panel; Complete Time: 16:47 pm1 05/28 15:24 Order name: CBC with Diff; Complete Time: 16:47 pm1 05/28 15:24 Order name: LFT's; Complete Time: 16:47 pm1 05/28 15:24 Order name: Magnesium; Complete Time: 16:47 pm1 05/28 15:24 Order name: NT PRO-BNP; Complete Time: 16:47 pm1 05/28 15:24 Order name: PT-INR; Complete Time: 16:47 pm1 05/28 15:24 Order name: Troponin (emerg Dept Use Only); Complete Time: 16:47 pm1 05/28 15:24 Order name: XRAY Chest (1 view); Complete Time: 16:47 pm1 05/28 15:24 Order name: EKG; Complete Time: 15:25 pm1 05/28 15:24 Order name: Cardiac monitoring; Complete Time: 15:23 pm1 05/28 15:24 Order name: EKG - Nurse/Tech; Complete Time: 15:23 pm1 05/28 16:36 Order name: Urine Dipstick--Ancillary (enter results); Complete Time: 16:47 eb 05/28 16:36 Order name: Urine --Ancillary (enter results); Complete Time: 16:47 eb 05/28 17:16 Order name: Troponin (emerg Dept Use Only); Complete Time: 20:17 ca1 05/28 15:24 Order name: IV Saline Lock; Complete Time: 15:44 pm1 05/28 15:24 Order name: Labs collected and sent; Complete Time: 15:44 pm1 05/28 15:24 Order name: O2 Per Protocol; Complete Time: 15:23 pm1 05/28 15:24 Order name: O2 Sat Monitoring; Complete Time: 15:23 pm1 05/28 15:24 Order name: Urine Dipstick-Ancillary (obtain specimen); Complete Time: 16:29 pm1 05/28 15:24 Order name: Urine Test (obtain specimen); Complete Time: 16:29 pm1 Administered Medications: No medications were administered Disposition: 05/29 07:37 Co-signature as Attending Physician, Dale Mcleod MD. sd2 Disposition: 05/28/20 20:27 Discharged to Home. Impression: Chest pain, unspecified. - Condition is Stable. - Discharge Instructions: Nonspecific Chest Pain. - Medication Reconciliation Form, Thank You Letter, Antibiotic Education, Prescription Opioid Use form. - Follow up: Emergency Department; When: As needed; Reason: Worsening of condition. Follow up: Private Physician; When: 2 - 3 days; Reason: Recheck today's complaints, Continuance of care, Re-evaluation by your physician. - Problem is new. - Symptoms have improved. Signatures: Dispatcher [employer] EDMS Angel Cantrell NP LINES TENDER pm1 Ana Perez RN RN jl7 Dale Mcleod MD MD sd2 Kelsey Lehman RN RN ca1 Corrections: (The following items were deleted from the chart) 05/28 20:36 20:27 05/28/2020 20:27 Discharged to Home. Impression: Chest pain, unspecified. ca1 Condition is Stable. Forms are Medication Reconciliation Form, Thank You Letter, Antibiotic Education, Prescription Opioid Use. Follow up: Emergency Department; When: As needed; Reason: Worsening of condition. Follow up: Private Physician; When: 2 - 3 days; Reason: Recheck today's complaints, Continuance of care, Re-evaluation by your physician. Problem is new. Symptoms have improved. pm1
[2020-05-29 16:41] VITALS: TEMP 98
[2020-05-29 16:44] VITALS: O2SAT 99
[2020-05-29 16:47] VITALS: BP 111/81
--- NOTE | 2020-05-30 20:04 | EKG ---
Test Date: 2020-05-28 Test Time: 15:04:33 Lead Massage Therapist: GRETA MEASUREMENT RESULTS: Intervals: Rate: 65 CT: 148 QRSD: 86 QT: 392 QTc: 407 [place]: P: 42 CT: 148 QRS: 30 T: 35 INTERPRETIVE STATEMENTS: Normal sinus rhythm with sinus arrhythmia Normal ECG Compared to ECG 07/25/2016 16:54:27 No significant changes Electronically Signed On 05-30-20 19:59:43 CDT by Duane Burton
== END 2020-05-28 20:36 | disposition home or self-care (01) ==
LOC: ER 15:01
DX: R07.9 Chest pain, unspecified (principal); G40.909 Epilepsy, unspecified, not intractable, without status epilepticus
CPT/HCPCS: 36415; 71045; 80048; 80076; 81003; 81025; 83735; 83880; 84484; 85025; 85610; 93005; 99285

== ENCOUNTER 2021-05-09 22:21 | Emergency (ER) | payer SELFPAY ==
--- OUTSIDE RECORDS SUMMARY | 2021-05-09 22:24 | XMS REPORT | Continuity of Care Document ---
:1975 Author Organization [facility] t Address [address] [place] [address] Care Team Providers Name Role Phone Doctor Unassigned, Name Attending Clinician Unavailable Piyush VENEGAS Attending Clinician Lab, Fam Pob I Attending Clinician Unavailable Problems This patient has no known problems. Allergies, Adverse Reactions, Alerts This patient has no known allergies or adverse reactions. Medications This patient has no known medications. Procedures This patient has no known procedures. Encounters Start End Encounter Admission Attending Care Care Encounter Source Date/Time Date/Time Type Type Clinicians Facility Department ID 2021-03-14 2021-03-14 Orders Doctor JOE [id number] 00:00:00 00:00:00 Only UnassignedJE [id number] [facility] [id number] 2020-04-15 2020-04-15 Telephone JOE Pickett [id number] 00:00:00 00:00:00 [facility] [id number] [facility] [id number] 2020-04-14 2020-04-14 Laboratory Lab, [facility] [id number] 09:52:50 10:12:50 Only Fam Pob I Health [id number] [place] [id number] Professmary alice [id number] [address]al [address] 2020-04-14 2020-04-14 Letter Doctor JOE [id number] 00:00:00 00:00:00 (Out) Unassigned, JE [id number] [place] [id number] Results This patient has no known results.
[2021-05-10 00:16] LABS: Urine Blood 2+ (Negative); Urine Glucose Negative (Negative); Urine Protein Negative (Negative); Urine Specific Gravity >=1.030 (1.005-1.030)
[2021-05-10 00:36] LABS: Absolute Lymphocytes (CBC) 2.3 K/uL (0.7-4.9); Basophils % 0.7 % (0-1.3); Hematocrit 34.6 % (36.0-45.0); Lymphocytes % 22.9 % (15.3-44.8); MPV 8.1 fL (7.6-11.3); RBC Red Blood Cell Count 4.14 M/uL (3.86-4.86)
[2021-05-10 00:42] LABS: Barbiturates NEGATIVE (NEGATIVE); Benzodiazepines NEGATIVE (NEGATIVE); Cocaine NEGATIVE (NEGATIVE); METHAMPHETAM NEGATIVE (NEGATIVE); Methadone NEGATIVE (NEGATIVE); Opiates NEGATIVE (NEGATIVE); Phencyclidine NEGATIVE (NEGATIVE); THC Cannibis NEGATIVE (NEGATIVE)
[2021-05-10 00:59] LABS: Protime INR 1.03
[2021-05-10 01:10] LABS: ALT/SGPT 24 U/L (12-78); AST/SGOT 11 U/L (15-37); Albumin 3.6 g/dL (3.4-5.0); Alkaline Phosphatase 91 U/L (45-117); BUN Blood Urea Nitrogen 13 mg/dL (7-18); Bicarbonate 24 mmol/L (21-32); Bilirubin Direct < 0.1 mg/dL (0-0.2); Bilirubin Total 0.3 mg/dL (0.2-1.0); Glucose Level 102 mg/dL (74-106); Potassium 3.5 mmol/L (3.5-5.1); Sodium Level 139 mmol/L (136-145)
[2021-05-10 01:35] LABS: Urine Specific Gravity/Preg >1.030 (1.005-1.030)
--- NOTE | 2021-05-10 04:11 | ER ---
Nurse's Notes [facility] Name: Juliana Chicas Age: 45 yrs Sex: Female : 1975 Arrival Date: 05/09/2021 Time: 22:41 Bed DIS11 Private MD: Diagnosis: Suicidal ideations Presentation: 05/09 23:12 Chief complaint: EMS states: a family member said something that upset her and she iw started that she wanted to kill herself , hx of mental illness , pt states that her cousin makes her wanna kill herself bc she wants to get away from her mother and her cousin. Coronavirus screen: At this time, the client does not indicate any symptoms associated with coronavirus-19. Ebola Screen: Patient negative for fever greater than or equal to 101.5 degrees Fahrenheit, and additional compatible Ebola Virus Disease symptoms Patient denies exposure to infectious person. Patient denies travel to an Ebola-affected area in the 21 days before illness onset. No symptoms or risks identified at this time. Initial Sepsis Screen: Does the patient meet any 2 criteria? No. Patient's initial sepsis screen is negative. Does the patient have a suspected source of infection? No. Patient's initial sepsis screen is negative. Risk Assessment: Do you want to hurt yourself or someone else? Patient reports no desire to harm self or others. Onset of symptoms was May 09, 2021. 23:12 Method Of Arrival: Ambulatory iw 23:12 Acuity: GEMMA 2 iw Historical: - Allergies: 23:14 No Known Allergies; iw - Home Meds: 23:14 None [Active]; iw - PMHx: 23:14 Asthma; Seizures; iw - Immunization history:: Client reports receiving the 1st dose of the Covid vaccine. - Social history:: Smoking status: Patient denies any tobacco usage or history of. Screenin/19 01:00 Abuse screen: Denies threats or abuse. Nutritional screening: No deficits noted. jb4 Tuberculosis screening: No symptoms or risk factors identified. Fall Risk None identified. Assessment: 00:55 General: Appears in no apparent distress. comfortable, Behavior is calm, cooperative, jb4 appropriate for age. Pain: Denies pain. Neuro: Level of Consciousness is awake, alert, obeys commands, Oriented to person, place, time, situation. Cardiovascular: Patient's skin is warm and dry. Respiratory: Airway is patent Respiratory effort is even, unlabored, Respiratory pattern is regular, symmetrical. GI: No signs and/or symptoms were reported involving the gastrointestinal system. : No signs and/or symptoms were reported regarding the genitourinary system. EENT: No signs and/or symptoms were reported regarding the EENT system. Derm: Skin is intact, Skin is pink, warm \\T\\ dry. Musculoskeletal: Circulation, motion, and sensation intact. Range of motion: intact in all extremities. 02:00 Reassessment: Patient appears in no apparent distress at this time. Patient and/or jb4 family updated on plan of care and expected duration. Pain level reassessed. Patient is alert, oriented x 3, equal unlabored respirations, skin warm/dry/pink. 03:02 Reassessment: Patient appears in no apparent distress at this time. Patient and/or jb4 family updated on plan of care and expected duration. Pain level reassessed. Patient is alert, oriented x 3, equal unlabored respirations, skin warm/dry/pink. 04:00 Reassessment: Patient appears in no apparent distress at this time. Patient and/or jb4 family updated on plan of care and expected duration. Pain level reassessed. Patient is alert, oriented x 3, equal unlabored respirations, skin warm/dry/pink. 05:00 Reassessment: Patient appears in no apparent distress at this time. Patient and/or jb4 family updated on plan of care and expected duration. Pain level reassessed. Patient is alert, oriented x 3, equal unlabored respirations, skin warm/dry/pink. 06:00 Reassessment: Patient appears in no apparent distress at this time. Patient and/or jb4 family updated on plan of care and expected duration. Pain level reassessed. Patient is alert, oriented x 3, equal unlabored respirations, skin warm/dry/pink. 08:41 Reassessment: Patient appears in no apparent distress at this time. Patient and/or ss family updated on plan of care and expected duration. Pain level reassessed. Denies SI/HI. Brother here to pick patient up. Psych: 01:33 [place] Suicide Severity Screening: In the past month, have you wished you were jb4 or wished you could go to sleep and not wake up? Patient responds "yes." "In the past month, have you actually had any thoughts of killing yourself?" Patient responds "yes." "In your lifetime, have you ever done anything, started to do anything, or prepared to do anything to end your life?" Patient responds "yes." Patient reports suicidal intent within 3 past months. Subjective: Patient's mood is sad, hopeless. Objective: Patient is cooperative, Speech is normal, Affect is flat. Interventions: Removed personal items and placed in bag. Patient placed in hospital gown. Searched person for dangerous items. Safety Checks: Personal items have been removed. Door is open. No visitors are present at this time. Pt denies substance abuse. Commitment: Patient will be a voluntary commitment. Vital Signs: 05/09 23:12 BP 111 / 64; Pulse 89; Resp 16; Temp 97.6; Pulse Ox 97% on R/A; Weight 81.65 kg; Height iw 5 ft. 2 in. (157.48 cm); 05/10 02:00 BP 93 / 68; Pulse 60; Resp 16; Pulse Ox 100% on R/A; jb4 05/09 23:12 Body Mass Index 32.92 (81.65 kg, 157.48 cm) iw ED Course: 05/09 22:41 Patient arrived in ED. cf2 23:14 Triage completed. iw 23:15 Arm band placed on. iw 05/10 00:10 Initial lab(s) drawn, by me, sent to lab. Inserted saline lock: 22 gauge in right em wrist, using aseptic technique. Blood collected. 00:41 Ron Olsen is Attending Physician. sp3 01:32 Jeff Genao, RN is Primary Nurse. jb4 01:43 Contacted [facility] to have pt screened per Dr. Olsen's request. tt3 02:54 [place] with [facility] called and asked for the pt demographics and clinicals to be tt3 emailed to him. Email was provided. Asked for 5-10 minutes and then to call via iPad to speak with the pt. 03:09 Connected [place] with [facility] with the pt via iPad for screening. tt3 08:40 No provider procedures requiring assistance completed. IV discontinued, intact, ss bleeding controlled, No redness/swelling at site. Pressure dressing applied. Administered Medications: No medications were administered Outcome: 04:11 Discharge ordered by MD. sp3 08:40 Discharged to home ambulatory. 08:40 Condition: good 08:40 Discharge instructions given to patient, Instructed on discharge instructions, follow up and referral plans. Demonstrated understanding of instructions, follow-up care. 08:41 Patient left the ED. Signatures: Ti Gonzales, RN RN em Kayley Lin RN RN Juana Soliman RN RN ss Jeff Genao RN RN jb4 Maria L Pierce cf2 Marcelo Chun tt3 Ron Olsen sp3 Corrections: (The following items were deleted from the chart) 05/09 23:14 23:14 Allergies: Aspirin; [facility] 05/10 07:24 04:00 Abuse screen: Denies threats or abuse. [place] [id number] 04:00 Nutritional screening: No deficits noted. 4 4 04:00 Tuberculosis screening: No symptoms or risk factors identified. [place] [id number] 04:00 Fall Risk None identified. [facility] jb4
--- NOTE | 2021-05-10 04:11 | EDPHYS ---
Physician Documentation [facility] Name: Juliana Chicas Age: 45 yrs Sex: Female : 1975 Arrival Date: 05/09/2021 Time: 22:41 Bed DIS11 Private MD: ED Physician Ron Olsen HPI: 05/10 01:57 This 45 yrs old Female presents to ER via Ambulatory with complaints of sp3 Suicidal Ideation. 01:57 5-year-old female with a history of seizures and asthma currently on Trileptal presents sp3 with suicidal ideation x1 day. Patient got into a verbal altercation regarding work scope of cleaning some furniture and was threatened and therefore patient now states she wants to "kill herself with a knife by stabbing herself". Patient denies homicidal ideation, hallucinations, anxiety, or any other psychiatric symptoms. On ROS patient denies headache, neck pain, fever, URI symptoms, shortness of breath, chest pain, abdominal pain, nausea, vomiting, diarrhea, syncope, neuro symptoms, rash, known sick contacts, travel history, or any other ROS at this time. Other systems are negative.. Historical: - Allergies: 05/09 23:14 No Known Allergies; iw - Home Meds: 23:14 None [Active]; iw - PMHx: 23:14 Asthma; Seizures; iw - Immunization history:: Client reports receiving the 1st dose of the Covid vaccine. - Social history:: Smoking status: Patient denies any tobacco usage or history of. ROS: 05/10 02:00 Constitutional: Negative for fever, chills, and weight loss, Eyes: Negative for injury, sp3 pain, redness, and discharge, ENT: Negative for injury, pain, and discharge, Neck: Negative for injury, pain, and swelling, Cardiovascular: Negative for chest pain, palpitations, and edema, Respiratory: Negative for shortness of breath, cough, wheezing, and pleuritic chest pain, Abdomen/GI: Negative for abdominal pain, nausea, vomiting, diarrhea, and constipation, Back: Negative for injury and pain, MS/Extremity: Negative for injury and deformity, Skin: Negative for injury, rash, and discoloration, Neuro: Negative for headache, weakness, numbness, tingling, and seizure, Allergy/Immunology: Negative for hives, rash, and allergies. Psych: Positive for suicidal ideation. Exam: 02:00 Constitutional: This is a well developed, well nourished patient who is awake, alert, sp3 and in no acute distress. Head/Face: Normocephalic, atraumatic. Eyes: Pupils equal round and reactive to light, extra-ocular motions intact. Lids and lashes normal. Conjunctiva and sclera are non-icteric and not injected. Cornea within normal limits. Periorbital areas with no swelling, redness, or edema. ENT: Nares patent. No nasal discharge, no septal abnormalities noted. External auditory canals are clear. Oropharynx with no redness, swelling, or masses, exudates, or evidence of obstruction, uvula midline. Mucous membranes moist. Neck: Trachea midline, no thyromegaly or masses palpated, and no cervical lymphadenopathy. Supple, full range of motion without nuchal rigidity, or vertebral point tenderness. No Meningismus. Chest/axilla: Normal chest wall appearance and motion. Nontender with no deformity. No lesions are appreciated. Cardiovascular: Regular rate and rhythm with a normal S1 and S2. No gallops, murmurs, or rubs. Normal PMI, no JVD. No pulse deficits. Respiratory: Lungs have equal breath sounds bilaterally, clear to auscultation and percussion. No rales, rhonchi or wheezes noted. No increased work of breathing, no retractions or nasal flaring. Abdomen/GI: Soft, non-tender, with normal bowel sounds. No distension or tympany. No guarding or rebound. No evidence of tenderness throughout. Back: No spinal tenderness. No costovertebral tenderness. Full range of motion. Skin: Warm, dry with normal turgor. Normal color with no rashes, no lesions, and no evidence of cellulitis. MS/ Extremity: Pulses equal, no cyanosis. Neurovascular intact. Full, normal range of motion. Neuro: Awake and alert, GCS 15, oriented to person, place, time, and situation. Cranial nerves II-XII grossly intact. Motor strength 5/5 in all extremities. Sensory grossly intact. Cerebellar exam normal. Normal gait. 02:00 Psych: Exam negative for hallucinations, delusions, psychosis, Behavior/mood is anxious, suicidal. Vital Signs: 05/09 23:12 BP 111 / 64; Pulse 89; Resp 16; Temp 97.6; Pulse Ox 97% on R/A; Weight 81.65 kg; Height iw 5 ft. 2 in. (157.48 cm); 05/10 02:00 BP 93 / 68; Pulse 60; Resp 16; Pulse Ox 100% on R/A; jb4 05/09 23:12 Body Mass Index 32.92 (81.65 kg, 157.48 cm) iw MDM: 00:47 Patient medically screened. sp3 02:01 Data reviewed: vital signs, nurses notes, lab test result(s). sp3 02:01 ED course: Patient is still actively suicidal but without psychosis. Given this is a sp3 new occurrence and she has no longstanding history of suicidal behavior or ideation, she may be a candidate for outpatient therapy. We will get [facility] team to see patient for recommendations. Laboratory values reviewed and patient is medically clear for psych eval.. 04:10 ED course: Discussed with [facility] team. They will arrange for outpatient treatment sp3 by contacting the patient tomorrow. To have accurate contact information and patient is on board with this. Patient does contract for her safety verbally and states that she no longer is suicidal. I am comfortable with this plan as follow-up will be in less than 12 hours in terms of initial contact. Patient understands that if she feels worse she will immediately return here or any emergency department.. 05/09 23:24 Order name: Acetaminophen; Complete Time: : sp3 05/09 23:24 Order name: Basic Metabolic Panel; Complete Time: : sp3 05/09 23:24 Order name: CBC with Diff; Complete Time: : sp3 05/09 23:24 Order name: ETOH Level; Complete Time: : sp3 05/09 23:24 Order name: Hepatic Function; Complete Time: : sp3 05/09 23:24 Order name: PT-INR; Complete Time: sp3 05/09 23:24 Order name: Ptt, Activated; Complete Time: : sp3 05/09 23:24 Order name: Salicylate; Complete Time: : sp3 05/09 23:24 Order name: Urine Drug Screen; Complete Time: : sp3 05/09 23:24 Order name: EKG; Complete Time: 23:51 sp3 05/09 23:24 Order name: EKG - Nurse/Tech; Complete Time: 01:31 sp3 05/09 23:24 Order name: IV Saline Lock; Complete Time: 23:55 sp3 05/10 00:16 Order name: Urine Dipstick-Ancillary; Complete Time: 01:41 EDMS 05/10 00:33 Order name: Urine --Ancillary (enter results); Complete Time: 01:41 tt3 05/09 23:24 Order name: Labs collected and sent; Complete Time: 23:55 sp3 05/09 23:24 Order name: Suicide Screening ([place]); Complete Time: 23:55 sp3 05/09 23:24 Order name: Urine Dipstick-Ancillary (obtain specimen); Complete Time: 02:11 sp3 Administered Medications: No medications were administered Disposition Summary: 05/10/21 04:11 Discharge Ordered Location: Home sp3 Condition: Stable sp3 Diagnosis - Suicidal ideations sp3 Followup: sp3 - With: Private Physician - When: As needed - Reason: Discharge Instructions: - Discharge Summary Sheet tt3 - Suicidal Feelings: How to Help Yourself sp3 - Stress, Adult sp3 Forms: - Medication Reconciliation Form tt3 - Thank You Letter sp3 - Antibiotic Education sp3 - Prescription Opioid Use sp3 Signatures: Dispatcher [employer] Kayley Adams, RN RN Ron Moscoso sp3 Corrections: (The following items were deleted from the chart) 05/09 23:14 23:14 Allergies: Aspirin; jase [place]una
--- NOTE | 2021-05-10 08:30 | EKG ---
Test Date: 2021-05-10 Test Time: 00:50:21 [place] Straightener Stamper: JANA MEASUREMENT RESULTS: Intervals: Rate: 62 ID: 140 QRSD: 86 QT: 428 QTc: 434 [place]: P: 46 ID: 140 QRS: 6 T: 14 INTERPRETIVE STATEMENTS: Normal sinus rhythm Normal ECG Compared to ECG 05/28/2020 15:04:33 Sinus arrhythmia no longer present Electronically Signed On 05-10-21 08:29:20 CDT by Duane Burton
[2021-05-10 09:20] VITALS: TEMP 97.6
[2021-05-10 09:22] VITALS: BP 93/68; O2SAT 100
== END 2021-05-10 08:41 | disposition home or self-care (01) ==
LOC: ER 22:21
DX: R45.851 Suicidal ideations (principal)
CPT/HCPCS: 36415; 80048; 80076; 80307; 80320; 80329; 81003; 81025; 85025; 85610; 85730; 93005; 99284

== ENCOUNTER 2021-12-29 18:24 | Emergency (ER) | payer OTHER ==
--- OUTSIDE RECORDS SUMMARY | 2021-12-29 18:27 | XMS REPORT | Continuity of Care Document ---
:1975 Author Organization [facility] t Address [address] [place] [address] Care Team Providers Name Role Phone Doctor Unassigned, Name Attending Clinician Unavailable Piyush ROCKP Attending Clinician Lab, Fam Pob I Attending Clinician Unavailable Payers Payer Name Policy Type Policy Number Effective Date Expiration Date S ource Problems Condition Condition Condition Status Onset Resolution Last Treating Co mments Source Name Details Category Date Date Treatment Clinician Date Bilateral Bilateral Disease Active Uni vers hand pain hand pain 4-28 ity of 00:00: [address] Prediabete Prediabete Disease Active U bernarda s s 4-09 ity of 00:00: [address] Beta Beta Disease Active 2016-09 Univers thalassemi thalassemi 0-25 it y of a trait a trait 00:00: [address] Iron Iron Disease Active 2016-09 Univers deficiency deficiency 0-25 it y of 00:: [address] Dental Dental Disease Active 2016-09 Univers decay decay 0-11 ity of 00:00: [address] Anemia Anemia Disease Active Univers 6-01 ity of 00:00: [address] History of History of Disease Active U bernarda hypertensi hypertensi 6-29 it y of on on 00:00: [address] 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 6-08 it y of 00:00: [address] Allergies, Adverse Reactions, Alerts Allergy Allergy Status Severity Reaction(s) Onset Inactive Treating Comm ents Source Name Type Date Date Clinician NO KNOWN Drug Active Univers ALLERGIE Class ity of S [facility] Social History Social Habit Start Date Stop Date Quantity Comments Source Tobacco use and 2019-01-11 2019-01-11 Never used Universit y of exposure 00:00:00 00:00:00 [facility] Alcohol intake 2019-01-11 2019-01-11 Current University of 00:00:00 00:00:00 non-drinker of [facility] alcohol Branch (finding) Sex Assigned At [birth year] Universit y of 00:00:00 00:00:00 [facility] Smoking Status Start Date Stop Date Source Never smoker [facility] Medications Ordered Filled Start Stop Current Ordering Indication Dosage Frequency Signature Comments Components Source Medication Medication Date Date Medication? Clinician (SIG) Name Name OXcarbazepi 2019- Yes 600mg Take 600 U nivers ne 3-21 mg by ity of (TRILEPTAL) 20:14: mouth 2 Jose as 600 mg 28 (two) Medical tablet times Branch daily. OXcarbazepi 2019-0 Yes 600mg Take 600 U nivers ne 3-21 mg by ity of (TRILEPTAL) 20:14: mouth 2 Jose as 600 mg 28 (two) Medical tablet times Branch daily. OXcarbazepi 2019-0 Yes 600mg Take 600 U nivers ne 3-21 mg by ity of (TRILEPTAL) 20:14: mouth 2 Jose as 600 mg 28 (two) Medical tablet times Branch daily. OXcarbazepi 2019-0 Yes 600mg Take 600 U nivers ne 3-21 mg by ity of (TRILEPTAL) 20:14: mouth 2 Jose as 600 mg 28 (two) Medical tablet times Branch daily. Immunizations Ordered Filled Immunization Date Status Comments [facility] e Immunization Name Name Influenza Virus 2017-07-02 Completed Universit y of Vaccine Quad IM 00:00:00 [place] [facility] Multi-dose 6+ [place] Branch Influenza Virus 2017-07-02 Completed Universit y of Vaccine Quad IM 00:00:00 [place] [facility] Multi-dose 6+ MO Branch Influenza Virus 2017-07-02 Completed Universit y of Vaccine Quad IM 00:00:00 [place] [facility] Multi-dose 6+ MO Branch Influenza Virus 2017-07-02 Completed Universit y of Vaccine Quad IM 00:00:00 [place] [facility] Multi-dose 6+ MO Branch Procedures Procedure Date / Time Performed Performing Clinician [facility] e OP CLINIC 2021-03-14 05:01:00 Doctor Unassigned, No Univer [facility] NOTES/CONSULTS Name Medical Branch Encounters Start End Encounter Admission Attending Care Care Encounter Source Date/Time Date/Time Type Type Clinicians Facility Department ID 2021-03-14 2021-03-14 Orders Doctor DIAZ [id number] 00:00:00 00:00:00 Only Unassigned, JE [id number] [facility] [id number] 2021-03-14 2021-03-14 Orders Doctor JOE [id number] Univers 00:00:00 00:00:00 Only Unassigned, JE [id number] ity of [facility] [id number] Jose as [id number] [address] 2020-04-15 2020-04-15 Telephone JOE Pickett [id number] 00:00:00 00:00:00 Katherinealden MINY [id number] HOSPITAL [id number] 2020-04-15 2020-04-15 Telephone JOE Pickett [id number] [facility] 00:00:00 00:00:00 Katherine WOOTEN [id number] it y of HOSPITAL [id number] Jose as [id number] [address] 2020-04-14 2020-04-14 Outpatient R [facility] [id number] Univers 10:20:00 10:20:00 [id number] ity of [facility] 2020-04-14 2020-04-14 Outpatient R [facility] [id number] Univers 10:20:00 10:20:00 ity of [facility] 2020-04-14 2020-04-14 Laboratory Lab, [facility] [id number] 09:52:50 10:12:50 Only Fam Pob I Health [id number] [place] [id number] Professio [phone] [place] [address] [address] 2020-04-14 2020-04-14 Laboratory Lab, Adc Fam Pob I [place] [id number] [facility] 09:52:50 10:12:50 Only Katherine Pickett [id number] ity of [place] [id number] Jose as Amanda [phone] [facility] [address] 2020-04-14 2020-04-14 Letter Doctor JOE [id number] 00:00:00 00:00:00 (Out) Unassigned, JE [id number] [facility] [id number] [facility] 2020-04-14 2020-04-14 Letter Doctor JOE [id number] [facility] 00:00:00 00:00:00 (Out) Unassigned, JE [id number] ity of [facility] [id number] Jose as [phone] [address] Results This patient has no known results.
[2021-12-29 19:03] LABS: Urine Blood Negative (Negative); Urine Glucose Negative (Negative); Urine Protein Negative (Negative); Urine Specific Gravity >=1.030 (1.005-1.030); Urine pH 5.5 (5.0-7.0)
[2021-12-29 19:10] LABS: Hematocrit 38.7 % (36.0-45.0); Lymphocytes % 23.9 % (15.3-44.8); MPV 8.1 fL (7.6-11.3); RBC Red Blood Cell Count 4.82 M/uL (3.86-4.86)
[2021-12-29 19:14] LABS: Protime INR 1.05
[2021-12-29] MEDS ORDERED: CEFTRIAXONE 1000 MG/VIAL ONE (19:18)
[2021-12-29] MEDS ORDERED: NA CHLORIDE 0.9% 500 ML ONE (19:18)
[2021-12-29 19:19] LABS: Barbiturates NEGATIVE (NEGATIVE); Benzodiazepines NEGATIVE (NEGATIVE); Cocaine NEGATIVE (NEGATIVE); METHAMPHETAM NEGATIVE (NEGATIVE); Methadone NEGATIVE (NEGATIVE); Opiates NEGATIVE (NEGATIVE); Phencyclidine NEGATIVE (NEGATIVE); THC Cannibis NEGATIVE (NEGATIVE)
[2021-12-29 19:26] LABS: AST/SGOT 14 U/L (15-37); Alkaline Phosphatase 91 U/L (45-117); Potassium 3.8 mmol/L (3.5-5.1); Sodium Level 137 mmol/L (136-145)
[2021-12-29 19:37] LABS: ALT/SGPT 18 U/L (12-78); Albumin 3.5 g/dL (3.4-5.0); BUN Blood Urea Nitrogen 14 mg/dL (7-18); Bicarbonate 25 mmol/L (21-32); Glucose Level 97 mg/dL (74-106)
[2021-12-29 19:38] LABS: Bilirubin Total 0.2 mg/dL (0.2-1.0)
[2021-12-29 19:51] LABS: Bilirubin Direct < 0.1 mg/dL (0-0.2)
--- NOTE | 2021-12-29 21:17 | ER ---
Nurse's Notes [facility] Name: Juliana Chicas Age: 46 yrs Sex: Female : 1975 Arrival Date: 12/29/2021 Time: 18:28 Bed 15 Private MD: Diagnosis: Suicidal ideations Presentation: 12/29 18:33 Chief complaint: Per mental health deputy family called pd due to pt being more jh6 depressed than usual and stating that she wanted to harm her self. Coronavirus screen: Vaccine status: Patient reports receiving the 2nd dose of the covid vaccine. Ebola Screen: Patient negative for fever greater than or equal to 101.5 degrees Fahrenheit, and additional compatible Ebola Virus Disease symptoms Patient denies exposure to infectious person. Patient denies travel to an Ebola-affected area in the 21 days before illness onset. Initial Sepsis Screen: Does the patient meet any 2 criteria? No. Patient's initial sepsis screen is negative. Does the patient have a suspected source of infection? No. Patient's initial sepsis screen is negative. Risk Assessment: Do you want to hurt yourself or someone else? Patient reports desire/thoughts of hurting themselves or someone else. Provider notified. Onset of symptoms is unknown. 18:33 Method Of Arrival: Law Enforcement: [place] [facility] 18:33 Acuity: GEMMA 2 [facility] Triage Assessment: 18:36 General: Appears in no apparent distress. obese, unkempt, Behavior is calm, flat. Pain: [facility] Denies pain. Historical: - Allergies: 18:35 No Known Allergies; [facility] - Home Meds: 18:35 Trileptal 600 mg Oral tab 1 tab 2 times per day [Active]; [facility] - PMHx: 18:35 Asthma; Seizures; [facility] - Immunization history:: Adult Immunizations up to date, Client reports receiving the 2nd dose of the Covid vaccine. - Social history:: Smoking status: unknown. Screenin:37 Abuse screen: Denies threats or abuse. Nutritional screening: No deficits noted. [facility] Tuberculosis screening: No symptoms or risk factors identified. Fall Risk None identified. Assessment: 18:37 General: Appears in no apparent distress. obese, unkempt, Behavior is calm, flat. Pain: 6 Denies pain. 19:35 Reassessment: Patient and/or family updated on plan of care and expected duration. Pain ag7 level reassessed. Patient is alert, oriented x 3, equal unlabored respirations, skin warm/dry/pink. Patient continue to voice suicidal ideation and state, "she plans to machete/cut herself." SITTER AT THE BEDSIDE Patient denies pain at this time. 20:07 Reassessment: pt given sandwich, drink per her request. bb 20:53 Reassessment: Patient and/or family updated on plan of care and expected duration. Pain ag7 level reassessed. Patient is alert, oriented x 3, equal unlabored respirations, skin warm/dry/pink. Patient denies pain at this time. Patient states symptoms have not improved. 22:00 Reassessment: Patient and/or family updated on plan of care and expected duration. Pain ag7 level reassessed. Patient is alert, oriented x 3, equal unlabored respirations, skin warm/dry/pink. SITTER AT BEDSIDE. PATIENT CONTINUE WITH SUICIDE IDEATION. 22:26 Reassessment: Patient c/o headache 07/01 and leg pain bilateral MD Sutton notified. ag7 23:40 Reassessment: Report given to Leo PETERSON from [facility] call back number [email or web address] . Charge nurse request hold on admission due to Leo PETERSON verbalization no beds available until Friday. 12/30 00:30 Reassessment: No changes from previously documented assessment. Patient and/or family ag7 updated on plan of care and expected duration. Pain level reassessed. Patient is alert, oriented x 3, equal unlabored respirations, skin warm/dry/pink. 01:04 Reassessment: Verbal order given and read back from MD Sutton for Acetaminophen 1000 mg ag7 by mouth. 01:43 Reassessment: Patient and/or family updated on plan of care and expected duration. Pain ag7 level reassessed. Patient is alert, oriented x 3, equal unlabored respirations, skin warm/dry/pink. Patient states feeling better. Patient states symptoms have improved. 02:43 Reassessment: Patient and/or family updated on plan of care and expected duration. Pain ag7 level reassessed. Patient is alert, oriented x 3, equal unlabored respirations, skin warm/dry/pink. Patient denies pain at this time. 03:43 Reassessment: Patient and/or family updated on plan of care and expected duration. Pain ag7 level reassessed. Patient is alert, oriented x 3, equal unlabored respirations, skin warm/dry/pink. Patient denies pain at this time. 04:50 Reassessment: No changes from previously documented assessment. Patient and/or family ag7 updated on plan of care and expected duration. Pain level reassessed. Patient is alert, oriented x 3, equal unlabored respirations, skin warm/dry/pink. Patient continue with suicide ideation, SITTER AT THE BEDSIDE Patient denies pain at this time. 06:06 Reassessment: No changes from previously documented assessment. Patient and/or family ag7 updated on plan of care and expected duration. Pain level reassessed. Patient is alert, oriented x 3, equal unlabored respirations, skin warm/dry/pink. PATIENT IS RESTING IN BED WITH EYES CLOSED, SITTER CONTINUE AT THE BEDSIDE. 07:00 General: Appears Behavior is calm, cooperative, resting with eyes closed and nad. ss sitter at bedside. 08:30 Reassessment: Patient and/or family updated on plan of care and expected duration. Pain ss level reassessed. spoke with pt ramandeep is now awake and eating breakfast. states that she is still feeing sad but no longer feeling like she wants to hurt herself. Patient denies pain at this time. 19:30 General: Appears in no apparent distress. Behavior is calm, cooperative. Pain: al4 Complains of pain in head. Neuro: Level of Consciousness is awake, alert, obeys commands, Oriented to person, place, time. Cardiovascular: Capillary refill < 3 seconds Patient's skin is warm and dry. Respiratory: Airway is patent Respiratory effort is unlabored, Respiratory pattern is regular. GI: No signs and/or symptoms were reported involving the gastrointestinal system. : No signs and/or symptoms were reported regarding the genitourinary system. EENT: No signs and/or symptoms were reported regarding the EENT system. Derm: No signs and/or symptoms reported regarding the dermatologic system. Musculoskeletal: Circulation, motion, and sensation intact. 19:30 Reassessment: Patient denies suicidal thoughts at this time. Patient re-screened for al4 SI, further documentation in paper packet. Sitter at bedside.. 21:00 Reassessment: Patient appears in no apparent distress at this time. Patient is alert, al4 oriented x 3, equal unlabored respirations, skin warm/dry/pink. Sitter at bedside. 21:21 Reassessment: Dr. Prieto verbal ordered 1G Tylenol for patient. al4 23:00 Reassessment: Patient appears in no apparent distress at this time. Patient is alert, al4 oriented x 3, equal unlabored respirations, skin warm/dry/pink. Sitter at bedside.. 12/31 00:19 Reassessment: Patient appears in no apparent distress at this time. Patient is al4 sleeping. Breathing noted. Door open, sitter on break. 01:09 Reassessment: Patient appears in no apparent distress at this time. patient is al4 sleeping. breathing noted. door open. sitter on break.. 01:20 Reassessment: Patient appears in no apparent distress at this time. patient is al4 sleeping. sitter at bedside. 03:11 Reassessment: Patient appears in no apparent distress at this time. patient is sleeping.al4 03:59 Reassessment: Patient appears in no apparent distress at this time. patient is resting al4 quietly. sitter present at this time. 06:00 Reassessment: Patient is alert, oriented x 3, equal unlabored respirations, skin al4 warm/dry/pink. Sitter at bedside.. 07:00 Reassessment: Report given to KRISTEN Guerrero. al4 07:30 Reassessment: RECD REPORT FROM LEON PETERSON. 46YO HF P/W SUICIDAL IDEATION. NO CURRENT bp SI/HI, PT RESTING QUIETLY. SITTER AT B/S. TRANSFER INITIATED, NO ACCEPTANCE AT THIS TIME. 08:35 Reassessment: REPORT TO [facility]. bp 08:49 Reassessment: REPORT TO DANIELA PETERSON. TRANSPORT PENDING. bp Vital Signs: 12/29 18:45 BP 114 / 82; Pulse 61; Resp 17; Temp 98.2(TE); Pulse Ox 100% ; Weight 86.18 kg; Height bp 5 ft. 5 in. (165.10 cm); Pain 0/10; 19:36 BP 113 / 86 LA Supine (auto/reg); Pulse 61 MON; Resp 16 S; Temp 98.4(O); Pulse Ox 95% ag7 on R/A; Pain 0/10; 12/30 01:43 Pain 0/10; ag7 08:00 BP 126 / 82; Pulse 66; Resp 18; Temp 97.7(O); Pulse Ox 98% ; Pain 0/10; ss 12/31 05:50 BP 98 / 70; Pulse 68; Resp 17; Temp 97.9(O); Pulse Ox 99% ; Pain 0/10; al4 12/29 18:45 Body Mass Index 31.62 (86.18 kg, 165.10 cm) bp 05:50 VS taken by Sitter al4 ED Course: 12/29 18:28 Patient arrived in ED. 6 18:32 Pt has RONY MCKEON. cs9 18:33 Mehdi Torres MD is Attending Physician. [facility] 18:33 Rozina Bates, RN is Primary Nurse. jh6 18:35 Triage completed. 6 18:37 Initial lab(s) drawn, by ED staff, sent to lab. Urine collected: clean catch specimen, [facility] clear. 18:46 Arm band placed on left wrist. jh6 18:46 Placed in gown. Bed in low position. Call light in reach. Side rails up X 1. Valuables 6 Locked in safe. 19:02 Inserted saline lock: 20 gauge in right antecubital area, using aseptic technique. 6 Blood collected. 19:03 Urine Drug Screen Sent. mb7 19:03 Basic Metabolic Panel Sent. mb7 19:03 CBC with Diff Sent. mb7 19:03 Hepatic Function Sent. mb7 19:03 ETOH Level Sent. mb7 19:03 PT-INR Sent. mb7 19:03 Ptt, Activated Sent. mb7 19:03 Salicylate Sent. mb7 19:04 Safety checks: Sitter present: Yes. mb7 19:14 EKG done, by ED staff, reviewed by Mehdi Torres MD. mb7 19:15 Attending Physician role handed off by Mehdi Torres MD ms3 19:15 Ottoniel Sutton DO is Attending Physician. ms3 20:07 Diet: Patient given snack. bb 21:41 faxed for placement to [facility], [facility], [address], [facility], [facility]. 21:45 Called [facility] for a screening. cs9 22:04 [facility] will be here roughly in an hour to evaluate her. cs9 12/30 01:44 No provider procedures requiring assistance completed. ag7 03:44 Faxed elclusionary to [facility]. cs9 03:45 faxed to [phone]. cs9 07:54 Attending Physician role handed off by Ottoniel Sutton DO cha 07:54 Mehdi Torres MD is Attending Physician. belen 07:[address] Saucedo the psychiatrist production analyst for [facility] with Dr. Torres for patient transfer consultation. 19:00 No apparent distress. Resting quietly. Safety Checks: Personal items have been removed. al4 Sitter present at this time. 20:12 Primary Nurse role handed off by Rozina Bates RN cs9 20:37 Leon Leyva is Primary Nurse. al4 21:00 No apparent distress. Resting quietly. Safety Checks: Personal items have been removed. al4 Sitter present at this time. 23:00 No apparent distress. Resting quietly. Safety Checks: Personal items have been removed. al4 Sitter present at this time. 12/31 00:20 No apparent distress. Appears to be sleeping. Safety Checks: Personal items have been al4 removed. The door is open or patient has been placed in a hallway bed/chair. Sitter not present at this time. 01:09 No apparent distress. Appears to be sleeping. Safety Checks: Personal items have been al4 removed. The door is open or patient has been placed in a hallway bed/chair. Sitter not present at this time. 01:20 No apparent distress. Appears to be sleeping. Safety Checks: Personal items have been al4 removed. Sitter present at this time. 02:18 No apparent distress. Appears to be sleeping. Safety Checks: Personal items have been al4 removed. Sitter present at this time. 03:58 No apparent distress. Appears to be sleeping. Safety Checks: Personal items have been al4 removed. Sitter present at this time. 05:55 faxed again to [address], [facility], [facility], [address], [facility], [facility], and [facility] cs9 06:00 No apparent distress. Resting quietly. Safety Checks: Personal items have been removed. al4 Sitter present at this time. 08:02 Primary Nurse role handed off by Leon Leyva bp 08:02 Cesar Pavon, RN is Primary Nurse. bp 08:58 pt accepted in transfer to [facility] by dr Khari Wilson. admin bd approval given by Lizzie. Administered Medications: 12/29 19:34 Drug: NS 0.9% 500 ml Route: IV; Rate: bolus; Site: right forearm; ag7 20:30 Follow up: IV Status: Completed infusion; IV Intake: 500ml ag7 19:34 Drug: Rocephin (cefTRIAXone) 1 grams Route: IV; Rate: per protocol; Site: right forearm;ag7 20:00 Follow up: Response: No adverse reaction ag7 12/30 01:10 Drug: Acetaminophen 1000 mg Route: PO; ag7 01:43 Follow up: Pain 0/10 Adult; Response: No adverse reaction; Pain is decreased ag7 21:42 Drug: Tylenol 1000 mg Route: PO; al4 23:19 Follow up: Response: No adverse reaction; Marked relief of symptoms al4 Intake: 12/29 20:30 IV: 500ml; Total: 500ml. ag7 Outcome: 21:16 ER care complete, transfer ordered by . ms3 12/31 10:04 Patient left the ED. bp Signatures: Elma Vidal Corey, MD MD cha Ballard, Brenda, RN RN Juana Ashraf RN RN ss Peltier, Brian, RN RN Quin Douglas Marcus, DO DO ms3 Mirella Cabrera cs9 Rozina Bates RN RN Deb Ann 7 Leon Leyva id4 Mariah Zhu, KRISTEN RN ag7 Corrections: (The following items were deleted from the chart) 12/30 06:07 04:50 Reassessment: No changes from previously documented assessment. Patient and/or ag7 family updated on plan of care and expected duration. Pain level reassessed. Patient is alert, oriented x 3, equal unlabored respirations, skin warm/dry/pink. Patient continue with suicide ideation Patient denies pain at this time. ag7 06:08 12/29 19:35 Reassessment: Patient and/or family updated on plan of care and expected ag7 duration. Pain level reassessed. Patient is alert, oriented x 3, equal unlabored respirations, skin warm/dry/pink. Patient continue to voice suicidal ideation and state, "she plans to machete/cut herself." Patient denies pain at this time. ag7 12/30 23:37 23:00 Reassessment: Patient appears in no apparent distress at this time. Patient is al4 alert, oriented x 3, equal unlabored respirations, skin warm/dry/pink. al4 12/31 00:14 00:13 Reassessment: Patient appears in no apparent distress at this time. Patient is al4 sleeping. Breathing noted. Door open, sitter on break. al4 00:19 00:13 Reassessment: Patient appears in no apparent distress at this time. Patient is al4 sleeping. Breathing noted. Door open, sitter on break. al4 00:20 00:13 No apparent distress. Appears to be sleeping. al4 al4 00:20 00:13 Safety Checks: Personal items have been removed. The door is open or patient has al4 been placed in a hallway bed/chair. Sitter not present at this time al4 08:02 07:30 Reassessment: RECD REPORT FROM LEON PETERSON. 46YO HF P/W SUICIDAL IDEATION. NO bp CURRENT SI/HI, PT RESTING QUIETLY. SITTER AT B/S bp 08:34 12/29 18:45 BP 114 / 82; Pulse 61bpm; Resp 17bpm; Pulse Ox 100%; Temp 98.2F Temporal; bp 86.18 kg; Height 5 ft. 5 in.; BMI: 31.6; Pain 0/10; jh6
--- NOTE | 2021-12-29 21:18 | EDPHYS ---
Physician Documentation [facility] Name: Juliana Chicas Age: 46 yrs Sex: Female : 1975 Arrival Date: 12/29/2021 Time: 18:28 Bed 15 Private MD: ED Physician Mehdi Torres HPI: 12/29 18:57 This 46 yrs old Female presents to ER via [employer] with complaints of belen suicidal ideation, depressed. 18:57 The patient presents to the emergency department with depression, over unknown belen circumstances, over money, people taking money, fathers . Onset: The symptoms/episode began/occurred just prior to arrival. Past psychiatric history: Prior diagnosis: no previous psychiatric diagnosis known, Psychiatric medications include: none, triliptal. Associated signs and symptoms: The patient has no apparent associated signs or symptoms. Severity of symptoms: At their worst the symptoms were mild in the emergency department the symptoms are unchanged. The patient has not experienced similar symptoms in the past. Historical: - Allergies: 18:35 No Known Allergies; [facility] - Home Meds: 18:35 Trileptal 600 mg Oral tab 1 tab 2 times per day [Active]; [facility] - PMHx: 18:35 Asthma; Seizures; [facility] - Immunization history:: Adult Immunizations up to date, Client reports receiving the 2nd dose of the Covid vaccine. - Social history:: Smoking status: unknown. ROS: 19:00 Constitutional: Negative for fever, chills, and weight loss, Eyes: Negative for injury, belen pain, redness, and discharge, ENT: Negative for injury, pain, and discharge, Neck: Negative for injury, pain, and swelling, Cardiovascular: Negative for chest pain, palpitations, and edema, Respiratory: Negative for shortness of breath, cough, wheezing, and pleuritic chest pain, Abdomen/GI: Negative for abdominal pain, nausea, vomiting, diarrhea, and constipation, Back: Negative for injury and pain, : Negative for injury, bleeding, discharge, and swelling, MS/Extremity: Negative for injury and deformity, Skin: Negative for injury, rash, and discoloration, Neuro: Negative for headache, weakness, numbness, tingling, and seizure, Allergy/Immunology: Negative for hives, rash, and allergies, Endocrine: Negative for neck swelling, polydipsia, polyuria, polyphagia, and marked weight changes, Hematologic/Lymphatic: Negative for swollen nodes, abnormal bleeding, and unusual bruising. 19:00 Psych: Positive for depression, suicidal ideation. Exam: 19:00 Constitutional: This is a well developed, well nourished patient who is awake, alert, belen and in no acute distress. Head/Face: Normocephalic, atraumatic. Eyes: Pupils equal round and reactive to light, extra-ocular motions intact. Lids and lashes normal. Conjunctiva and sclera are non-icteric and not injected. Cornea within normal limits. Periorbital areas with no swelling, redness, or edema. ENT: Nares patent. No nasal discharge, no septal abnormalities noted. Tympanic membranes are normal and external auditory canals are clear. Oropharynx with no redness, swelling, or masses, exudates, or evidence of obstruction, uvula midline. Mucous membranes moist. Neck: Trachea midline, no thyromegaly or masses palpated, and no cervical lymphadenopathy. Supple, full range of motion without nuchal rigidity, or vertebral point tenderness. No Meningismus. Chest/axilla: Normal chest wall appearance and motion. Nontender with no deformity. No lesions are appreciated. Cardiovascular: Regular rate and rhythm with a normal S1 and S2. No gallops, murmurs, or rubs. Normal PMI, no JVD. No pulse deficits. Respiratory: Lungs have equal breath sounds bilaterally, clear to auscultation and percussion. No rales, rhonchi or wheezes noted. No increased work of breathing, no retractions or nasal flaring. Abdomen/GI: Soft, non-tender, with normal bowel sounds. No distension or tympany. No guarding or rebound. No evidence of tenderness throughout. Back: No spinal tenderness. No costovertebral tenderness. Full range of motion. Skin: Warm, dry with normal turgor. Normal color with no rashes, no lesions, and no evidence of cellulitis. MS/ Extremity: Pulses equal, no cyanosis. Neurovascular intact. Full, normal range of motion. Neuro: Awake and alert, GCS 15, oriented to person, place, time, and situation. Cranial nerves II-XII grossly intact. Motor strength 5/5 in all extremities. Sensory grossly intact. Cerebellar exam normal. Normal gait. Psych: Awake, alert, with orientation to person, place and time. Behavior, mood, and affect are within normal limits. 19:00 Psych: Behavior/mood is pleasant, Affect is calm, Oriented to person, place, time, Patient has no thoughts/intents to harm self or others. Judgement / Insight is normal. Memory is normal. Delusions/hallucinations are not present. 19:15 ECG was reviewed by the Attending Physician. [facility] [facility] Vital Signs: 18:45 BP 114 / 82; Pulse 61; Resp 17; Temp 98.2(TE); Pulse Ox 100% ; Weight 86.18 kg; Height bp 5 ft. 5 in. (165.10 cm); Pain 0/10; 19:36 BP 113 / 86 LA Supine (auto/reg); Pulse 61 MON; Resp 16 S; Temp 98.4(O); Pulse Ox 95% ag7 on R/A; Pain 0/10; 12/30 01:43 Pain 0/10; ag7 08:00 BP 126 / 82; Pulse 66; Resp 18; Temp 97.7(O); Pulse Ox 98% ; Pain 0/10; ss 12/31 05:50 BP 98 / 70; Pulse 68; Resp 17; Temp 97.9(O); Pulse Ox 99% ; Pain 0/10; al4 12/29 18:45 Body Mass Index 31.62 (86.18 kg, 165.10 cm) bp 05:50 VS taken by Kobe al4 MDM: 12/29 18:33 Patient medically screened. belen 19:01 Differential diagnosis: drug withdrawal. acute psychotic break, depression, psychosis belen secondary to non-compliance. Data reviewed: vital signs, nurses notes, lab test result(s), EKG. Data interpreted: monitoring manager: rate is 61 beats/min, rhythm is regular, Pulse oximetry: on room air is 100 %. Test interpretation: by ED physician or midlevel provider: ECG, . Counseling: I had a detailed discussion with the patient and/or guardian regarding: the historical points, exam findings, and any diagnostic results supporting the discharge/admit diagnosis, lab results, radiology results. ED course: Dr Sutton to follow up , dispo , transfer when cleared. 12/29 18:33 Order name: Acetaminophen; Complete Time: 21:15 [facility] 12/29 18:33 Order name: Basic Metabolic Panel; Complete Time: 21:15 [facility] 12/29 18:33 Order name: CBC with Diff; Complete Time: 19:40 [facility] 12/29 18:33 Order name: ETOH Level; Complete Time: 21:15 [facility] 12/29 18:33 Order name: Hepatic Function; Complete Time: 21:15 belen 12/29 18:33 Order name: PT-INR; Complete Time: 19:40 [facility] 12/29 18:33 Order name: Ptt, Activated; Complete Time: 19:40 [facility] 12/29 18:33 Order name: Salicylate; Complete Time: 21:15 [facility] 12/29 18:33 Order name: Urine Drug Screen; Complete Time: 19:40 [facility] 12/29 18:57 Order name: SARS-COV-2 RT PCR (Document "Date of Onset" if Symptomatic); Complete Time: [facility] 21:15 12/29 19:02 Order name: Urine --Ancillary (enter results); Complete Time: 19:40 cs9 12/29 19:03 Order name: Urine Dipstick-Ancillary; Complete Time: 19:06 EDMS 12/29 18:33 Order name: EKG; Complete Time: 18:34 [facility] 12/29 18:33 Order name: EKG - Nurse/Tech; Complete Time: 19:15 [facility] 12/29 18:33 Order name: IV Saline Lock; Complete Time: 19:03 [facility] 12/29 18:33 Order name: Labs collected and sent; Complete Time: 19:03 [facility] 12/29 18:33 Order name: Suicide Precautions; Complete Time: 19:03 [facility] 12/29 18:33 Order name: Suicide Screening (Hasty); Complete Time: 21:34 [facility] 12/29 18:33 Order name: Urine Dipstick-Ancillary (obtain specimen); Complete Time: 19:03 [facility] 12/29 18:33 Order name: Urine Test (obtain specimen); Complete Time: 19:03 [facility] 12/30 11:38 Order name: Diet Finger Food; Complete Time: 11:39 6 12/31 07:35 Order name: Diet Finger Food; Complete Time: 07:36 dh3 EC:15 Rate is 52 beats/min. Rhythm is regular. QRS West is Normal. VT interval is normal. QRS belen interval is normal. QT interval is normal. No Q waves. T waves are Normal. No ST changes noted. Clinical impression: Sinus bradycardia and No evidence of ischemia. Interpreted by me. Reviewed by me. Administered Medications: 19:34 Drug: NS 0.9% 500 ml Route: IV; Rate: bolus; Site: right forearm; ag7 20:30 Follow up: IV Status: Completed infusion; IV Intake: 500ml ag7 19:34 Drug: Rocephin (cefTRIAXone) 1 grams Route: IV; Rate: per protocol; Site: right forearm;ag7 20:00 Follow up: Response: No adverse reaction ag7 12/30 01:10 Drug: Acetaminophen 1000 mg Route: PO; ag7 01:43 Follow up: Pain 0/10 Adult; Response: No adverse reaction; Pain is decreased ag7 21:42 Drug: Tylenol 1000 mg Route: PO; al4 23:19 Follow up: Response: No adverse reaction; Marked relief of symptoms al4 Disposition Summary: 12/29/21 21:16 Transfer Ordered Transfer Location: Psych Facility ms3 Reason: Higher level of care ms3 Condition: Stable ms3 Problem: new ms3 Symptoms: are unchanged ms3 Accepting Physician: Psych(12/31/21 10:04) bp Diagnosis - Suicidal ideations ms3 Forms: - Medication Reconciliation Form ms3 - SBAR form ms3 Signatures: Dispatcher [employer] EDMehdi Terry MD MD cha Peltier, Brian, RN RN Ottoniel Alfaro DO DO ms3 Rozina Bates RN RN [id number] Leon Leyva al4 Mariah Zhu RN RN ag7 Corrections: (The following items were deleted from the chart) 12/31 10:04 12/29 21:16 Psych ms3 bp
[2021-12-30] MEDS ORDERED: ACETAMINOPHEN 500 MG TAB ONE ×2 (01:11→21:33)
--- NOTE | 2021-12-31 09:41 | EKG ---
Test Date: 2021-12-29 Test Time: 19:12:53 Resort Manager: MB MEASUREMENT RESULTS: Intervals: Rate: 52 DE: 140 QRSD: 86 QT: 422 QTc: 392 [place]: P: 33 DE: 140 QRS: 23 T: 17 INTERPRETIVE STATEMENTS: Sinus bradycardia Possible Lateral infarct, age undetermined Abnormal ECG Compared to ECG 05/10/2021 00:50:21 Myocardial infarct finding now present Sinus rhythm no longer present Electronically Signed On 12-31-21 09:35:59 CDT by Duane Burton
[2021-12-31 11:31] VITALS: BP 98/70; TEMP 97.9; O2SAT 99
== END 2021-12-31 10:04 ==
LOC: ER 18:24
DX: R45.851 Suicidal ideations (principal); F32.A Depression, unspecified; Z20.822 Contact with and (suspected) exposure to COVID-19
CPT/HCPCS: 96361; 93005; 85025; 80048; 36415; 80320; 80329 ×2; 81025; 85610; 80076; 85730; 81003; 80307; 96374; 99284; U0003; J7040

== ENCOUNTER 2023-01-30 21:56 | Emergency (ER) | payer OTHER ==
--- OUTSIDE RECORDS SUMMARY | 2023-01-30 21:59 | XMS REPORT | Continuity of Care Document ---
:1975 Author Organization [facility] t Address [address] [facility] [address] [place] [address] Care Team Providers Name Role Phone DIEGO Attending Clinician Unavailable Bert Bui Attending Clinician Unavailable Tammy Attending Clinician Unavailable Doctor Unassigned, [place] Attending Clinician Unavailable Katherine Bennett Attending Clinician Lab, [facility] Pob I Attending Clinician Unavailable DIEGO Admitting Clinician Unavailable Sathya Slaughter Admitting Clinician Unavailable Tammy Admitting Clinician Unavailable Payers Payer Name Policy Type Policy Number Effective Date Expiration Date Johanna herrera [employer] HEALTH OON [id number] 2020 00:00:00 [employer] HEALTH [id number] (MEDICARE 00:00:00 REPLACEMENT HMO) Problems Condition Condition Condition Status Onset Resolution Last Treating Co mments Source Name Details Category Date Date Treatment Clinician Date Bilateral Bilateral Disease Active Uni vers hand pain hand pain 4-28 ity of 00:00: [address] Branch Prediabete Prediabete Disease Active U nivers s s 4-09 ity of 00:00: [address] Branch Beta Beta Disease Active 2016-09 Univers thalassemi thalassemi 0-25 it y of a trait a trait 00:00: [address] Iron Iron Disease Active 2016-09 Univers deficiency deficiency 0-25 it y of 00:00: [address] Dental Dental Disease Active 2016-09 Univers decay decay 0-11 ity of 00:00: [address] Anemia Anemia Disease Active Univers 6-01 ity of 00:00: [place] [address] Medical Branch History of History of Disease Active U nivers hypertensi hypertensi 6-29 it y of on on 00:00: [address] Branch 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 6- it y of 00:00: [address] Allergies, Adverse Reactions, Alerts Allergy Allergy Status Severity Reaction(s) Onset Inactive Treating Comm ents Source Name Type Date Date Clinician No Known DA Active U [facility] Allergie 6 Corpus s 00:00: [address] NO KNOWN Drug Active Univers ALLERGIE Class ity of S [facility] Social History Social Habit Start Date Stop Date Quantity Comments Source Tobacco use and 2019-01-11 2019-01-11 Never used Universit y of exposure 00:00:00 00:00:00 [facility] Alcohol intake 2019-01-11 2019-01-11 Current University 00:00:00 00:00:00 non-drinker of [facility] alcohol Branch (finding) Sex Assigned At [birth year] Universit y of 00:00:00 00:00:00 [facility] Smoking Status Start Date Stop Date Source Never smoker [facility] Medications Ordered Filled Start Stop Current Ordering Indication Dosage Frequency Signature Comments Components Source Medication Medication Date Date Medication? Clinician (SIG) Name Name OXcarbazepi Yes 600mg Take 600 U nivers ne 3-21 mg by ity of (TRILEPTAL) 20:14: mouth 2 Jose as 600 mg 28 (two) Medical tablet times Branch daily. OXcarbazepi Yes 600mg Take 600 U nivers ne 3-21 mg by ity of (TRILEPTAL) 20:14: mouth 2 Jose as 600 mg 28 (two) Medical tablet times Branch daily. OXcarbazepi Yes 600mg Take 600 U nivers ne 3-21 mg by ity of (TRILEPTAL) 20:14: mouth 2 Jose as 600 mg 28 (two) Medical tablet times Branch daily. OXcarbazepi 2019-0 Yes 600mg Take 600 U nivers ne 3-21 mg by ity of (TRILEPTAL) 20:14: mouth 2 Jose as 600 mg 28 (two) Medical tablet times Branch daily. Immunizations Ordered Filled Immunization Date Status Comments Sour e Immunization Name Name Influenza Virus 2017-07-02 Completed Universit y of Vaccine Quad IM 00:00:00 [place] [facility] Multi-dose 6+ MO Branch Influenza Virus 2017-07-02 Completed Universit y of Vaccine Quad IM 00:00:00 [place] [facility] Multi-dose 6+ MO Branch Influenza Virus 2017-07-02 Completed Universit y of Vaccine Quad IM 00:00:00 [place] [facility] ical Multi-dose 6+ MO Branch Influenza Virus 2017-07-02 Completed Universit y of Vaccine Quad IM 00:00:00 [place] [facility] ical Multi-dose 6+ MO Branch Procedures Procedure Date / Time Performed Performing Clinician [facility] e OP CLINIC 2021-03-14 05:01:00 [facility] NOTES/CONSULTS Name Medical Branch Encounters Start End Encounter Admission Attending Care Care Encounter Source Date/Time Date/Time Type Type Clinicians Facility Department ID 2021-12-29 Outpatient [facility] [id number] [place] 23:00:45 [id number] [facility] 2022-04-05 2022-04-05 Outpatient SWETHA RASHID [place] [id number] [place] 10:48:00 10:48:00 [place] [id number] [facility] 2022-03-01 2022-03-07 Emergency EM Pesch, [facility] [id number] [facility] 18:50:00 10:05:00 Theodor [id number] [facility] 2022-03-01 2022-03-07 Emergency EM Pesch, [facility] ER [id number] [facility] 18:50:00 10:05:00 Theodor 30 [facility] 2022-01-17 2022-01-17 Outpatient Grover_T VFP VFP [id number] 0-20 [place] 05:28:00 05:28:00 [id number] Family Practic e 2022-01-17 2022-01-17 Outpatient Grover_T VFP VFP [id number] 0-20 [place] 05:28:00 05:28:00 [id number] Family Practic e 2021-03-14 2021-03-14 Orders Doctor JOE [id number] [facility] 00:00:00 00:00:00 Only Unassigned, JE [id number] ity of [place] [facility] [id number] Jose as [phone] [facility] 00[address] [place] 2021-03-14 2021-03-14 Orders Doctor JOE [id number] 00:00:00 00:00:00 Only Unassigned, JE 350.1.13.10 [place] [facility] [id number] [id number] 2020-04-15 2020-04-15 Telephone JOE Pickett [id number] [facility] 00:00:00 00:00:00 Katherine JE [id number] it y of [facility] [id number] Jose as [phone] [facility] 019 [place] 2020-04-15 2020-04-15 Telephone JOE Pickett [id number] 00:00:00 00:00:00 Katherine JE [id number] HOSPITAL [id number] 2020-04-14 2020-04-14 Outpatient R [facility] [id number] Univers 10:20:00 10:20:00 ity of [facility] 2020-04-14 2020-04-14 Laboratory Lab, [facility] Fam Pob I [facility] [id number] [facility] 09:52:50 10:12:50 Only Katherine Pickett Health [id number] ity of [place] [id number] Jose as Professio [id number] [address] 2020-04-14 2020-04-14 Laboratory Lab, [facility] [id number] 09:52:50 10:12:50 Only Fam Pob I Health 350.1.13.10 [place] [id number] Professio [id number] nal [address] 2020-04-14 2020-04-14 Letter Doctor JOE [id number] Univers 00:00:00 00:00:00 (Out) Unassigned, JE 350.1.13.10 ity of [place] [facility] 4.2.7.2.686 Jose as [id number] [facility] 044 Branch 2020-04-14 2020-04-14 Letter Doctor JOE [id number] 00:00:00 00:00:00 (Out) Unassigned, JE 350.1.13.10 [place] [facility] [id number] [id number] Results Test Description Test Time Test Comments Results Result Comments Source LIPID PROFILE (CORONARY RISK) 2022-03-02 07:51:00 Test Item Value Reference Range Interpretation Comme nts TRIGLYCERIDES (test code = TRIG) 98 MG/DL 30-200 N CHOLESTEROL (test code = CHOL) 194 MG/DL 122-200 N CHOLESTEROL/HDL RATIO (test code 4.0 1.5-4.5 N 1. Initial classification based = CHOLHDL) on total choles terol: <200 mg/dl Desirable cornelius sterol 200-239 mg/dl Borderlin e high risk cholesterol >24 0 mg/dl High risk cholesterol2. I nitial classification based on LDL cholesterol: <1 30 mg/dl Desirable LDL cholesterol 130-159 mg/dl Borderline high risk LDL >159 mg/dl High risk LDL cholesterol3. HDL < 35 mg/dl represent increased CHD r isk; HDL > 60 mg/dl represent decreased CHD risk.4. Chol/HD L > 5.0 represent increased CHD r isk in men; Chol/HDL > 4.5 represent increased CHD r isk in women. HDL CHOLESTEROL (test code = 49 MG/DL 40-60 N HDL) LIPOPROTEIN LDL (test code = 125 MG/DL 62-130 N LDL) LIPOPROTEIN VLDL (test code = 20 MG/DL 3-60 N VLDL) ADD ONTROP-I HIGH [id number] 07:51:00 Test Item Value Reference Range Interpretation Comments TROP-I HIGH SENSITIVITY 4 ng/L < 51 - T he use of serial (test code = TROPIHS) sampli ng and testing protocol is a recommended pra ctice.- An elevated tro ponin level alone is often not sufficient for diagnosis of my ocardial infarction.Resu lts of this assay meth od may be falsely depr essed orelevated if p atient is taking high doses of Biotin. ADD ONTROP-I HIGH [id number] 00:36:00 Test Item Value Reference Range Interpretation Comments TROP-I HIGH 5 ng/L < 51 Results above 51 for SENSITIVITY (test code femal es and 76 for males = TROPIHS) are consistent with IFCC Committee recom mendations to use the 99th percentile of a normal population as a reference decision-limit. - The use of serial sampl ing and testing protoco l is a recommended pra ctive.- An elevated high sensitiveity tr oponin level alone is often not sufficient for diagnosis of myocardial infarction.- In order to distinguish acu te elevations of h igh sensitivity tro ponin from other clinical conditions, the Fourth [place] Defin ition of Myocardial Infa rction stresses clinic al assessment and demonstration o f a rise and/or fall in serial troponin result s above the upper refer ence limit.Results o f this assay method ma y be falsely depress ed orelevated if p atient is taking high dos es of Biotin. [id number] 20:08:00 Test Item Value Reference Range Interpretation Comments CK (test code = CKT) 41 Units/L 26-192 N [id number] 20:08:00 Test Item Value Reference Range Interpretation Comments ACETAMINOPHEN (test < 1 MCG/ML 10-30 L Acetamin ophen is code = ACET) possibly toxic at levels of: 1. m ore than 150 MCG/ML 4 hours post clinton stion. 2. more than 50 MCG/ML 12 hours post ingestion. [id number] 20:08:00 Test Item Value Reference Range Interpretation Comments SALICYLATE (test code = < 3 MG/DL 0-20 N Refe rence Range: SONNY) Analgesic...... ...... ...... < 10 mg/ dl Therapeutic.... ...... ...... 15-20 mg /dl Mild Toxicity....... ...... . > 30 mg/dl Se jonah Toxicity....... ..... > 60 mg/dl [id number] 20:08:00 Test Item Value Reference Range Interpretation Comments ALCOHOL (test code = < 3 MG/DL 0-10 N 0 - 10 : Should be ALC) interpreted as NEGATIVE. 11 - 50: None t o mild euphoria. 51 - 100: Mild influence on vi dhaval and dark adaptation . > 80: Legal intoxicat ion; Depression of C NS; Increasing degr ee of poisoning. > 40 0: Fatalities repo rted. Results are for medical purposes only a nd not forlegal or emp loyment evaluative purp oses. COMPREHENSIVE METABOLIC [id number] 20:08:00 Test Item Value Reference Range Interpretation Comments SODIUM (test code = 136 MMOL/L 133-145 N NA) POTASSIUM (test 3.5 MMOL/L 3.6-5.2 L code = K) CHLORIDE (test code 104 MMOL/L 100-108 N = CL) CARBON DIOXIDE 24 MMOL/L 22-32 N (test code = CO2) GLUCOSE (test code 147 MG/DL 65-99 H Results o f this = GLU) assay method ma y be falsely depressed orelevated if patient is taki ng sulfasalazine. BLOOD UREA NITROGEN 12 MG/DL 6-20 N (test code = BUN) GLOMERULAR Unable to 58-135 N Unable to FILTRATION RATE calculate calculate eG FR; no (test code = GFR) race enter ed to medical record.Reportin g units: mL/min/1.73m\S\ 2 (Modified MDRD Formula) CREATININE (test 1.04 MG/DL 0.60-1.00 H code = CREAT) TOTAL PROTEIN (test 7.1 G/DL 6.4-8.2 N code = PROT) ALBUMIN (test code 3.5 G/DL 3.4-5.0 N = ALB) GLOBULIN (test code 3.6 G/DL 1.5-3.8 N = GLOB) ALBUMIN/GLOBULIN 1.0 1.1-2.2 L RATIO (test code = A/G) CALCIUM (test code 9.0 MG/DL 8.7-10.5 N = CA) BILIRUBIN TOTAL 0.4 MG/DL 0.0-1.0 N (test code = BILT) SGOT/AST (test code 7 Units/L 15-37 L Results of this = AST) assay method ma y be falsely depressed orelevated if patient is taki ng sulfasalazine. SGPT/ALT (test code 15 Units/L 30-65 L Results of this = ALT) assay method ma y be falsely depressed orelevated if patient is taki ng sulfasalazine. ALKALINE 81 Units/L 50-136 N PHOSPHATASE TOTAL (test code = ALKP) DRUG OF ABUSE SCREEN [id number] 20:08:00 Test Item Value Reference Interpretation Comments Range UR COCAINE (test NEGATIVE NEGATIVE code = COCAU) UR MDMA (test code = NEGATIVE NEGATIVE MDMAQLU) UR CANNABINOIDS NEGATIVE NEGATIVE (test code = CANU) UR AMPHETAMINE (test NEGATIVE NEGATIVE code = AMPHU) UR BARBITURATE QUAL NEGATIVE NEGATIVE (test code = BARBQLU) UR BENZODIAZEPINE NEGATIVE NEGATIVE (test code = BENZU) UR OPIATES QUAL NEGATIVE NEGATIVE (test code = OPIAQLU) UR PHENCYCLIDINE NEGATIVE NEGATIVE Urine Drug Abuse Screen (PCP) (test code = provides preliminary PHENCU) results thatmay be confirmed by gonzalo caraballo methods (i.e., GC/MS) at [facility]. Results of scre en may not be usedin crimi nal justice, job performance or professionalcre dential review, or infa nt custody issues. Negativ e [place] Level ng/ml ------- ----- Cocaine 300 Methamphetamine (Ecstacy) 500 Cannabinoid s (THC) 50 Amphetamine 100 0 Barbiturates 20 0 Benzodiazepines 200 Opiates 300 Phencyclidi ne (PCP) 25 UA RFLX [id number] 20:03:00 Test Item Value Reference Range Interpretation Comments UA COLOR (test code = COLU) DARK YELLOW YELLOW UA APPEARANCE (test code = HAZY CLEAR APPU) UA GLUCOSE DIPSTICK (test NEGATIVE mg/dL NEGATIVE code = DGLUU) UA BILIRUBIN DIPSTICK (test NEGATIVE NEGATIVE code = BILU) UA KETONE DIPSTICK (test code NEGATIVE mg/dL NEGATIVE = KETU) UA SPECIFIC GRAVITY (test 1.025 1.001-1.035 N code = SGU) UA BLOOD DIPSTICK (test code NEGATIVE NEGATIVE = WARREN) UA PH DIPSTICK (test code = 5.0 5.5-7.0 L DEVON) UA PROTEIN DIPSTICK (test 25 mg/dL NEGATIVE A code = PROU) UA UROBILINOGEN DIPSTICK NORMAL mg/dL NORMAL (test code = URO) UA NITRITE DIPSTICK (test NEGATIVE NEGATIVE code = FLORENTINO) UA LEUKOCYTE ESTERASE 500 NEGATIVE A DIPSTICK (test code = LEUU) UA COMMENT (test code = COMU) VOLUME 10-12 ML URINE SPECIMEN DESCRIPTION Clean Catch (test code = UASPEC) UA [id number] 20:03:00 Test Item Value Reference Range Interpretation Comments UA WBC (test code = WBCU) 10 - 20 #/hpf <10 A UA RBC (test code = RBCU) 5-10 #/hpf NONE SEEN A UA SQUAMOUS CELLS (test 0 - 20 #/lpf <100 code = SQU) UA CULTURE NEEDED? (test Criteria met code = UACULT) UA BACTERIA (test code = 2+ #/hpf NONE SEEN BACU) UA MUCUS (test code = MUCU) 1+ #/lpf NONE SEEN UA YEAST (test code = Few Budding #/hpf NONE SEEN YEASTU) UR HCG [id number] 19:55:00 Test Item Value Reference Range Interpretation Comments UR HCG QUAL (test NEGATIVE NEGATIVE False nega tives may occur code = HCGQLU) when levels o f hCGare below 20 mIU/ml. When is still suspec heather, a new specimenshould be obtained after 48 hours and re-tested.If wa iting 48 hours is not me dically advisable,the t est result should be confi rmed using aquantitative h CG assay. CBC W/AUTO [id number] 19:53:00 Test Item Value Reference Range Interpretation Comments WHITE BLOOD CELL (test code = 10.67 x10 3/uL 4.80-10.80 N WBC) RED BLOOD CELL (test code = 4.55 x10 6/uL 4.2-5.4 N RBC) HEMOGLOBIN (test code = HGB) 11.9 G/DL 12.0-16.0 L HEMATOCRIT (test code = HCT) 36.7 % 37-47 L MEAN CELL VOLUME (test code = 80.7 FL 81-99 L MCV) MEAN CELL HGB (test code = 26.2 PG 27-31 L MCH) MEAN CELL HGB CONCENTRATION 32.4 G/DL 33-37 L (test code = MCHC) RED CELL DISTRIBUTION WIDTH 15.2 % 11.5-14.5 H (test code = RDW) PLATELET COUNT (test code = 351 x10 3/uL 150-450 N PLT) MEAN PLATELET VOLUME (test 10.4 FL 7.4-10.4 N code = MPV) NEUTROPHIL % (test code = NT%) 79.3 % 42-86 N LYMPHOCYTE % (test code = LY%) 15.7 % 24-44 L MONOCYTE % (test code = MO%) 4.3 % 0.0-4.0 H EOSINOPHIL % (test code = EO%) 0.3 % 0.0-2.7 N BASOPHIL % (test code = BA%) 0.4 % 0.0-0.5 N NEUTROPHIL # (test code = NT#) 8.46 x10 3/uL 1.8-7.7 H LYMPHOCYTE # (test code = LY#) 1.68 x10 3/uL 1.0-4.8 N MONOCYTE # (test code = MO#) 0.46 x10 3/uL 0.0-0.8 N EOSINOPHIL # (test code = EO#) 0.03 x10 3/uL 0.0-0.5 N BASOPHIL # (test code = BA#) 0.04 x10 3/uL 0.0-0.2 N
[2023-01-30 22:44] LABS: Calcium Oxalate Crystals- Ur Few /HPF (None Seen); Specific Gravity > 1.030 (1.005-1.030); Urine Bacteria None Seen /HPF (<20); Urine Bilirubin NEGATIVE (Negative); Urine Blood Negative (Negative); Urine Clarity Clear (Clear); Urine Color Yellow (Yellow); Urine Glucose NEGATIVE (Negative); Urine Mucus Slight /HPF (None Seen); Urine Protein TRACE (Negative); Urine RBC <5 /HPF (None Seen); Urine Urobilinogen Normal (Normal)
[2023-01-30 22:45] LABS: Absolute Lymphocytes (CBC) 1.3 K/uL (0.7-4.9); Hematocrit 35.4 % (36.0-45.0); Lymphocytes % 14.2 % (15.3-44.8); MPV 7.8 fL (7.6-11.3); RBC Red Blood Cell Count 4.31 M/uL (3.86-4.86)
[2023-01-30 22:46] LABS: Protime INR 1.01
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
--- NOTE | 2023-01-30 22:58 | ER ---
Nurse's Notes [facility] Name: Juliana Chicas Age: 47 yrs Sex: Female : 1975 Arrival Date: 01/30/2023 Time: 21:56 Bed 15 Private MD: Diagnosis: Suicidal ideations Presentation: 01/30 21:59 Chief complaint: EMS states: PD called EMS for suicidal ideation. Pt was found flailing kd3 on the ground and crying. PT is combative and is confused. Coronavirus screen: unknown. Ebola Screen: No symptoms or risks identified at this time. Initial Sepsis Screen: Does the patient meet any 2 criteria? No. Patient's initial sepsis screen is negative. Does the patient have a suspected source of infection? No. Patient's initial sepsis screen is negative. Risk Assessment: Do you want to hurt yourself or someone else? Patient reports no desire to harm self or others. Onset of symptoms was January 30, 2023. 21:59 Method Of Arrival: EMS: [facility] kd3 21:59 Acuity: [facility]EM[facility] 2 kd3 21:59 Chief complaint: EMS states: Late entry: Per EMS: The patient had called 911 due to kd3 suicidal ideation. Pt had planned on taking "all of her medications". Police called EMS, when EMS arrived on the scene, pt was crying and combative, there was no medications to be found in her home. Pt had four dogs in her home that had been with bowls of food placed in front of them and was speaking to them. pt reportedly has MR and has family members that are . On arrival, pt was calm and cooperative but confirmed SI with intent to "take all of her medications". Triage Assessment: 22:02 General: Appears uncomfortable, Behavior is crying. Pain: Denies pain. kd3 DIRECTOR OF SUPPLY CHAIN: 01/31 09:15 LMP N/A - Irregular menses eh3 Historical: - Home Meds: 09:10 Trileptal 300 mg Oral tablet 1 tabs 2 times per day [Active]; eh3 - PMHx: 01/30 22:02 Asthma; Seizures; kd3 - Immunization history:: Adult Immunizations unknown. - Social history:: Smoking status: unknown. - Family history:: not pertinent. - Hospitalizations: : No recent hospitalization is reported. Screenin:36 [facility] ED Fall Risk Assessment (Adult) History of falling in the last 3 months, kd3 including since admission No falls in past 3 months (0 pts) Confusion or Disorientation No (0 pts) Intoxicated or Sedated No (0 pts) Impaired Gait No (0 pts) Mobility Assist Device Used No (0 pt) Altered Elimination No (0 pt) Score/Fall Risk Level 0 - 2 = Low Risk Maintained a safe environment. Abuse screen: Denies threats or abuse. Denies injuries from another. Nutritional screening: No deficits noted. Tuberculosis screening: No symptoms or risk factors identified. Assessment: 21:56 General: Appears uncomfortable, Behavior is anxious. Neuro: Level of Consciousness is kd3 awake, alert, obeys commands, Oriented to person, place. Cardiovascular: Patient's skin is warm and dry. Respiratory: Airway is patent Trachea midline Respiratory effort is even, unlabored, Respiratory pattern is regular, symmetrical. GI: Abdomen is non-distended. 22:45 Reassessment: No changes from previously documented assessment. Patient and/or family kd3 updated on plan of care and expected duration. Pain level reassessed. Patient is alert, oriented x 3, equal unlabored respirations, skin warm/dry/pink. 23:50 Reassessment: No changes from previously documented assessment. Patient and/or family kd3 updated on plan of care and expected duration. Pain level reassessed. Patient is alert, oriented x 3, equal unlabored respirations, skin warm/dry/pink. 05/12 01:15 Reassessment: No changes from previously documented assessment. Patient and/or family kd3 updated on plan of care and expected duration. Pain level reassessed. Patient is alert, oriented x 3, equal unlabored respirations, skin warm/dry/pink. 02:33 Reassessment: Patient and/or family updated on plan of care and expected duration. Pain kd3 level reassessed. Patient is alert, oriented x 3, equal unlabored respirations, skin warm/dry/pink. General: Appears in no apparent distress. pt seen resting quietly in bed, eyes closed. . 03:18 Reassessment: Patient appears in no apparent distress at this time. No changes from kd3 previously documented assessment. Patient and/or family updated on plan of care and expected duration. Pain level reassessed. Patient is alert, oriented x 3, equal unlabored respirations, skin warm/dry/pink. pt seen resting quietly in bed, eyes closed. 05:37 Reassessment: Patient appears in no apparent distress at this time. No changes from kd3 previously documented assessment. Patient and/or family updated on plan of care and expected duration. Pain level reassessed. Patient is alert, oriented x 3, equal unlabored respirations, skin warm/dry/pink. 06:55 General: Appears in no apparent distress. Behavior is calm, cooperative. Pain: Denies kd3 pain. Neuro: Level of Consciousness is awake, alert, obeys commands, Oriented to person, place, time, situation. Respiratory: Airway is patent Trachea midline Respiratory effort is even, unlabored, Respiratory pattern is regular, symmetrical. 07:25 Reassessment: Report received from Emely PETERSON. Per Emely, pt is MR, both parents hb , lives alone, called 911 for SI, plan is to take pills, previous suicide attempt with knife. On scene pt had placed four dogs on floor in front of food bowls and was talking to the dogs as if they were alive. Dr. Patten and charge nurse Ana PETERSON notified. Request made for [facility] to see pt. Suicide precautions in place. See paper chart for SI documentation/safety checks. 09:17 Reassessment: Nurse to nurse given to Mable PETERSON [facility]. 09:35 Reassessment: Andrew Alexander at bedside, requesting EMS or PD report of situation preceding jl7 ED arrival. [facility] notified and report they will provide report. 09:36 Reassessment: Report given to Joaquina PETERSON at [facility]. hb 10:00 Reassessment: Patient appears in no apparent distress at this time. Patient and/or [facility] family updated on plan of care and expected duration. Pain level reassessed. Patient is alert, oriented x 3, equal unlabored respirations, skin warm/dry/pink. 10:07 Reassessment: Pt provided finger food breakfast tray, now sitting up in bed eating 3 breakfast. 10:30 Reassessment: Pt signed consent to be transferred to [facility]. [facility] Vital Signs: 01/30 22:35 BP 115 / 75; Pulse 80; Resp 18; Pulse Ox 98% on R/A; kd3 22:43 Temp 98.2(O); kd3 22:43 Weight 84.37 kg; kd3 12 02:32 BP 115 / 55; Pulse 70; Resp 17; Pulse Ox 99% on R/A; kd3 03:20 BP 132 / 75; Pulse 76; Resp 16; Pulse Ox 100% on R/A; kd3 03:54 BP 127 / 90; Pulse 81; Resp 18; Pulse Ox 98% on R/A; kd3 09:00 BP 124 / 88; Pulse 68; Resp 16; Temp 98.2; Pulse Ox 100% on R/A; Pain 0/10; hb 11:16 BP 110 / 68; Pulse 83; Resp 16; Temp 97.9(IR); Pulse Ox 99% on R/A; eh3 09:00 Pain Scale: Adult hb ED Course: 01/30 21:58 Patient arrived in ED. nj1 22:00 Joni Ashford MD is Attending Physician. rn 22:02 Triage completed. kd3 22:02 Arm band placed on. kd3 22:03 Maintain EMS IV. Dressing intact. Good blood return noted. Site clean \\T\\ dry. Gauge \\T\\ kd 3 site: 20 g right A/C. 22:24 Shama Lira, RN is Primary Nurse. kd3 22:34 Acetaminophen Sent. bc6 22:34 Basic Metabolic Panel Sent. bc6 22:34 CBC with Diff Sent. bc6 22:34 ETOH Level Sent. bc6 22:34 Hepatic Function Sent. bc6 22:35 PT-INR Sent. bc6 22:35 Ptt, Activated Sent. bc6 22:35 Salicylate Sent. bc6 22:35 Urinalysis w/ reflexes Sent. bc6 22:35 Urine Drug Screen Sent. bc6 22:36 CT Head C Spine In Process Unspecified. EDMS 01/31 00:20 Faxed current chart to all Psych facilities listed on Psych transfer sheet. wm 07:29 Attending Physician role handed off by Joni Ashford MD kdr 07:29 Fercho Patten MD is Attending Physician. kdr 08:17 called the [facility] Crisis line/ dispatch will page our a screener to come evaluate eb the patient. 08:24 faxed updated chart and demographics to [facility] and [facility]. eb 09:07 Alexia from [facility] here to screen patient. eb 09:15 Patient has correct armband on for positive identification. Bed in low position. Side eh3 rails up X2. SI precautions in place. 09:16 connected the nurse Alia Rn from [facility] with Ping Rn for patient eb transfer consultation. 09:33 connected Joaquina Rn from [facility] with Ping Rn for patient transfer eb consultation. 09:57 administrative approval given by Lee Philip / patient has been accepted to [facility] / Dr. Willa Bui has accepted the patient without conference with Dr. Patten. 11:17 No provider procedures requiring assistance completed. IV discontinued, intact, eh3 bleeding controlled, No redness/swelling at site. Pressure dressing applied. Administered Medications: 11:21 Drug: OXcarbazepine Extended Release 24 hour Tablet 300 mg Route: PO; eh3 11:21 Follow up: Response: Medication administered at discharge. eh3 Medication: 11:17 VIS not applicable for this client. eh3 Outcome: 01/30 22:57 ER care complete, transfer ordered by . rn 01/31 11:18 Transferred by ground EMS to other acute care facility: [place] . eh3 Condition: stable Instructed on the need for transfer. 11:21 Patient left the ED. eh3 Signatures: Dispatcher [employer] EDMS Fercho Patten MD MD [facility] Joni Ashford MD MD rn Baxter, Heather, RN KRISTEN Ana Perez, RN RN jl7 Quin Valencia Wendy wm Doucette, Kyli RN RN kd3 Yaima Rachel RN RN eh3 Gita Herman 6 Berenice Oakley, RN RN nj1 Corrections: (The following items were deleted from the chart) 08:07 07:25 Reassessment: Report received from Emely PETERSON. Per Emely, pt is MR, both parents hb , lives alone, called 911 for SI, plan is to take pills, previous suicide attempt with knife. On scene pt had placed four dogs on floor in front of food bowls and was talking to the dogs as if they were alive. Dr. Patten and charge nurse Ana PETERSON notified. Request made for [facility] to see pt. 08:35 08:27 Chief complaint: kd3 kd3 09:22 09:16 connected the nurse from [facility] with Ping Peterson for patient transfer eb consultation eb
[2023-01-30 23:19] LABS: ALT/SGPT 14 U/L (13-56); AST/SGOT 7 U/L (15-37); Albumin 3.2 g/dL (3.4-5.0); Alkaline Phosphatase 82 U/L (45-117); BUN Blood Urea Nitrogen 16 mg/dL (7-18); Barbiturates NEGATIVE (NEGATIVE); Benzodiazepines NEGATIVE (NEGATIVE); Bicarbonate 26 mEq/L (21-32); Bilirubin Total 0.2 mg/dL (0.2-1.0); Cocaine NEGATIVE (NEGATIVE); Glomerular Filtration Rate 81 ml/min (=/>90); Glucose Level 112 mg/dL (74-106); METHAMPHETAM NEGATIVE (NEGATIVE); Methadone NEGATIVE (NEGATIVE); Opiates NEGATIVE (NEGATIVE); Phencyclidine NEGATIVE (NEGATIVE); Potassium 3.4 mEq/L (3.5-5.1); Protein, Total 7.3 g/dL (6.4-8.2); Sodium Level 136 mEq/L (136-145); THC Cannibis NEGATIVE (NEGATIVE)
[2023-01-30 23:20] LABS: Bilirubin Direct < 0.1 mg/dL (0-0.2); Bilirubin Indirect, Calculated ND (0.2-0.8)
--- NOTE | 2023-01-31 05:34 | EKG ---
Test Date: 2023-01-30 Test Time: 22:11:50 Game Protector: HANNAH MEASUREMENT RESULTS: Intervals: Rate: 83 IA: 148 QRSD: 84 QT: 366 QTc: 430 [place]: P: 43 IA: 148 QRS: 29 T: 38 INTERPRETIVE STATEMENTS: Normal sinus rhythm Normal ECG Compared to ECG 12/26/2022 01:47:31 Sinus bradycardia no longer present Electronically Signed On 01-31-23 05:32:49 CDT by Duane Burton
[2023-01-31] MEDS ORDERED: OXcarbazepine 150 MG TAB ONE (11:23)
[2023-01-31 11:47] VITALS: BP 110/68; TEMP 97.9; O2SAT 99
== END 2023-01-31 11:21 ==
LOC: ER 21:56
DX: R45.851 Suicidal ideations (principal); R51.9 Headache, unspecified
CPT/HCPCS: 93005; 85025; 81001; 80048; 36415; 85610; 80076; 85730; 80307; 70450; 72125; 99285; G0480 ×3